=== PATIENT | male | born 1940 | race Caucasian/White ===

== ENCOUNTER 2017-09-10 18:34 | Emergency (ER) | payer MEDICARE ==
[~2017-09-10] VITALS: Ht 162.6 cm; Wt 75.3 kg
--- NOTE | 2017-09-10 19:07 | NUR ---
JOVANNA FROM HOME DT SP GLF. PATIENT IS COMPLAINING OF LOWER BACK PAIN, DENIES KO, DENIES HITTING HEAD. PATIENT REMAINS AWAKE AND ALERT, PT IN NO DISTRESS. RESPIRATION EVEN AND UNLABORED,. SKIN IS WARM TO TOUCH AND NON DIAPHORETIC, PT IS AFEBRILE. WILL CONT TO MONITOR
[2017-09-10] MEDS ORDERED: HYDROMORPHONE 1 MG/1 ML DISP.SYRIN ONE ×2 (19:10→20:55)
[2017-09-10] MEDS ORDERED: HYDROMORPHONE INJ 2 MG/ML DISP.SYRIN IV ONE (19:30)
--- NOTE | 2017-09-10 20:53 | NUR ---
Dr Cotter at bedside talking to patient and to patient's brother on the phone.
[2017-09-10] MEDS ORDERED: KETOROLAC TROMETHAMINE INJ 30 MG/ML VIAL ONE (20:55)
[2017-09-10] MEDS ORDERED: HYDROMORPHONE 1 MG/1 ML DISP.SYRIN IV ONE (21:00)
[2017-09-10] MEDS ORDERED: KETOROLAC TROMETHAMINE INJ 30 MG/ML VIAL IV ONE (21:00)
--- NOTE | 2017-09-10 22:46 | NUR ---
Patient does not wish to proceed with medical care recommended by Dr. Cotter. Patient given information related to possible complications, up to and including , which could occur as a result of leaving the hospital at this time. Patient verbalizes understanding of risks involved due to leaving against medical advice. Patient has signed AMA form. Patient discharged to home in stable condition. Written and verbal after care instructions given. Patient verbalizes understanding of instruction. IV removed. Catheter intact and site benign. Pressure and 4x4 applied to site. No bleeding noted. Patient able to walk with steady gait and assistance with a cane. Instructed not to drive. vss. nad noted on dc. No further complaints.
[2017-09-10 22:47] VITALS: BP 145/74
== END 2017-09-10 22:47 | disposition home or self-care (01) ==
LOC: ER 18:37
DX: S39.012A Strain of muscle, fascia and tendon of lower back, initial encounter (principal); M48.061 Spinal stenosis, lumbar region without neurogenic claudication; Z98.890 Other specified postprocedural states; W01.0XXA Fall on same level from slipping, tripping and stumbling without subsequent striking against object, initial encounter; Y93.89 Activity, other specified; Y92.89 Other specified places as the place of occurrence of the external cause; Y99.8 Other external cause status
CPT/HCPCS: 72128; 72131; 96374; 96375; 96376; 99285; A4606; J1170 ×2; J1885; Z7610

== ENCOUNTER 2017-09-12 09:02 | Inpatient (IN) | payer MEDICARE ==
[~2017-09-12] VITALS: Ht 162.6 cm; Wt 75.3 kg
--- NOTE | 2017-09-12 09:10 | NUR ---
BBRA 89 FROM HOME C/O GLF WITH LEFT SHOULDER PAIN. DENIES HEAD TRAUMA. DENIES LOC. C/O CHEST "ACHE". SEEN BY MD FOR EVAL. SAFETY AND COMFORT MEASURES PROVIDED. WILL MONITOR,.
--- NOTE | 2017-09-12 09:20 | NUR ---
IV ACCESS STARTED. UNABLE TO DRAW BLOOD. MEDICATED ORDERED.
[2017-09-12] MEDS ORDERED: IV NS 0.9% 500 ML BAG IV ONE (09:30)
--- NOTE | 2017-09-12 09:45 | NUR ---
PT TAKEN TO CT.
[2017-09-12 09:51] LABS: CALCIUM, SERUM 8.8 mg/dL (8.5-10.1); CARBON DIOXIDE 23 mmol/L (21-32); CHLORIDE 101 mmol/L (98-107); CREATININE 1.2 mg/dL (0.6-1.3); GLUCOSE 154 mg/dL (74-106); POTASSIUM 3.7 mmol/L (3.5-5.1); SODIUM SERUM 136 mmol/L (136-145); UREA NITROGEN, BLOOD 20 mg/dL (7-18)
[2017-09-12 09:55] LABS: INR 1.98 (0.85-1.15)
[2017-09-12 09:56] LABS: ALANINE AMINOTRANSFERASE 27 U/L (12-78); ALBUMIN 3.5 g/dL (3.4-5.0); ALKALINE PHOSPHATASE 73 U/L (46-116); ASPARTATE AMINOTRANSFERASE 26 U/L (15-37); BILIRUBIN,DIRECT 0.1 mg/dL (0.0-0.2); BILIRUBIN,TOTAL 0.4 mg/dL (0.2-1.0); TOTAL PROTEIN, SERUM 7.6 g/dL (6.4-8.2)
[2017-09-12 09:59] LABS: TROPONIN I < 0.017 ng/mL (0.00-0.056)
[2017-09-12] MEDS ORDERED: ALPR1TAB7 PO (10:07)
[2017-09-12] MEDS ORDERED: OXYC15TA2 PO (10:07)
[2017-09-12 10:38] LABS: BASOPHILS % (AUTO) 0.3 % (0.0-2.0); EOSINOPHILS # (AUTO) 0.2 /CMM (0.0-0.7); EOSINOPHILS % (AUTO) 1.9 % (0.0-6.0); HEMATOCRIT 36 % (39-51); HEMOGLOBIN 12.1 g/dL (13.5-17.5); LYMPHOCYTES # (AUTO) 0.8 /CMM (0.8-4.8); MEAN CORPUSCULAR HEMOGLOBIN 30 PG (26.0-33.0); MEAN CORPUSCULAR HGB CONC 34 g/dl (31.0-36.0); MEAN CORPUSCULAR VOLUME 89 fL (80-96); MONOCYTES # (AUTO) 0.5 /CMM (0.1-1.30); MONOCYTES % (AUTO) 5.1 % (2.0-12.0); NEUTROPHILS # (AUTO) 7.4 /CMM (1.8-8.9); NEUTROPHILS % (AUTO) 83.7 % (43.0-81.0); PLATELET COUNT (AUTO) 324 /CMM (150-450); RDW COEFFICIENT OF VARIATION 15.3 (11.5-15.0); RED BLOOD CELL COUNT(AUTO) 4.07 MIL/uL (4.5-6.0); WHITE BLOOD COUNT (AUTO) 8.9 K/uL (4.3-11.0)
[2017-09-12] MEDS ORDERED: IV NS 0.9% 1,000 ML IV PRN (10:38)
--- NOTE | 2017-09-12 10:47 | NUR ---
REPORT GIVEN TO MAURICIO JEREZ FOR TELE 321.
[2017-09-12] MEDS ORDERED: MAGNESIUM HYDROXIDE 30 ML UDC PO PRN (11:00)
[2017-09-12] MEDS ORDERED: ONDANSETRON HCL/PF 4 MG/2 ML VIAL IVP PRN (11:00)
[2017-09-12] MEDS ORDERED: ACETAMINOPHEN 325 MG TABLET PO PRN (11:00)
[2017-09-12] MEDS ORDERED: HYDROCODONE/APAP 5/325MG 1 EACH TABLET PO PRN (11:00)
[2017-09-12] MEDS ORDERED: MAG HYDROX/AL HYDROX/SIMETH 30 ML UDC PO PRN (11:00)
--- NOTE | 2017-09-12 11:03 | NUR ---
MS R&D LAB TECHNICIAN NOTES RECEIVED PT FROM ER NURSE IN STABLE CONDITION. PT IS A/O X3. NO SOB OR SIGNS OF DISTRESS NOTED. BREATHING EVEN AND UNLABORED. PT ADMITTED BY ALICIA THE LACQUER SHADER WITH A DIAGNOSIS OF SCUTE WEAKNESS SECONDARY TO INTRACTABLE BACK PAIN. PT DENIES ANY PAIN AT THIS TIME. HE WAS ORIENTED TO ROOM. BELONGINGS REVIEWED A ND VERIFIED WITH PT. PER PT, HE BELIEVES HE LEFT HAS "ALLIGATOR BOOTS" WITH THE FIRE DEPARTMENT STAFF AND/OR AT HOME. ER NURSE TO CALL WITH FIRE DEPARTMENT INFORMATION SO THAT THE PT MAY FOLLOW UP. VITALS STABLE AT THIS TIME. IV NOTED ON RIGHT HAND 20G TO BE PATENT AND INTACT. NO REDNESS OR SIGNS OF INFILTRATION NOTED. WILL BEGIN NS INFUSION. BED IN LOW LOCKED POTION, SIDE RAILS UP X2, CALL LIGHT WITHIN REACH. WILL CONTINUE TO MONITOR
[2017-09-12] MEDS: HYDROCODONE/APAP 10/325MG 1 EA TABLET PO PRN ×3 (11:30→21:06)
--- NOTE | 2017-09-12 12:46 | NUR ---
MS RN NOTES PT COMPLAINS OF LEFT SHOULDER PAIN S/P FALL AT HOME. ALICIA NOTIFIED AND GAVE PHONE ORDER FOR XR OF SHOULDER COMPLETE.
--- NOTE | 2017-09-12 14:55 | NUR ---
MS RN NOTES PT STATES 'I AM HAVING A PANIC ATTACK AND NEED MY MEDS". ALICIA NOTIFIED AND GAVE VERBAL ORDER FOR ATIVAN 1MG PO Q6HR. WILL INPUT ORDER AND ADMINISTER DOSE
[2017-09-12] MEDS: LORAZEPAM 1 MG TABLET PO PRN (15:07)
[2017-09-12 15:29] LABS: APPEARANCE,URINE CLEAR (CLEAR); BILIRUBIN,URINE NEGATIVE (NEGATIVE); BLOOD, URINE 2+ Ery/uL (NEGATIVE); COLOR,URINE YELLOW (YELLOW); KETONES,URINE TRACE (NEGATIVE); LEUKOCYTE ESTERASE ,URINE NEGATIVE (NEGATIVE); NITRITE, URINE NEGATIVE (NEGATIVE); PROTEIN,URINE TRACE mg/dl (NEGATIVE); UGLUCOSE NEGATIVE (NEGATIVE); UROBILINOGEN,URINE 0.2 EU/dL (0.2)
[2017-09-12 15:38] LABS: BACTERIA,URINE Rare /HPF (None Seen); SQUAMOUS EPITHELIAL CELL,UR Few /HPF (None Seen); WBC,URINE 0-2 /HPF (0-3)
[2017-09-12 16:00] VITALS: BP 130/73
--- NOTE | 2017-09-12 18:47 | NUR ---
MS RN CLOSING NOTES PT REMAINS STABLE SINCE ADMISSION. ALL NEEDS MET DURING SHIFT AND ORDERS CARRIED OUT ACCORDINGLY. ALL DUE MEDS GIVEN. SAFE AND FALL PRECAUTIONS REMAIN IN PLACE. WILL ENDORSE TO NIGHTSHIFT NURSE FOR JANET
--- NOTE | 2017-09-12 19:30 | NUR ---
MS RN NOTE RECEIVED PATIENT AWAKE ALERT AND ORIENTED IN BED. NO RESPIRATORY DISTRESS OR SOB NOTED. PATIENT DENIES ANY PAIN A THIS TIME. SAFETY PRECAUTIONS IN PLACE AT ALL TIMES. IV SITE INTACT, WITH FLUIDS RUNNING ORDERED. BED LOCKED AND IN LOWEST POSITION. CALL LIGHT WITHIN REACH. WILL CONTINUE TO MONITOR.
[2017-09-12 20:00] VITALS: BP 115/60
[2017-09-12] MEDS ORDERED: ALPRAZOLAM 1 MG TABLET PO SCH (22:00)
[2017-09-13 00:42] VITALS: BP 120/65
[2017-09-13 04:00] VITALS: BP 132/69
[2017-09-13] MEDS: HYDROCODONE/APAP 10/325MG 1 EA TABLET PO PRN ×2 (05:43→11:35)
--- NOTE | 2017-09-13 06:27 | NUR ---
MS RN NOTE PATIENT STABLE. SLEEPING AT THIS TIME. NORMAL AND EVEN RESPIRATIONS. ALL NEEDS MET AND ATTENDED TO. IV RUNNING ORDERED. WILL ENDORSE TO DAY SHIFT FOR JANET.
--- NOTE | 2017-09-13 07:27 | NUR ---
MS RN OPENING NOTES RECEIVED PT IN BED. AWAKE, A/O X3. NO SOB OR SIGNS OF DISTRESS NOTED. BREATHING EVEN AND UNLABORED. PT DENIES ANY PAIN AT THIS TIME. IV NOTED ON RIGHT HAND 20G, PATENT AND INTACT. NO REDNESS OR SIGNS OF INFILTRATION NOTED. BED IN LOW LOCKED POTION, SIDE RAILS UP X2, CALL LIGHT WITHIN REACH. WILL CONTINUE TO MONITOR
[2017-09-13] MEDS ORDERED: PANTOPRAZOLE 40 MG TABLET.DR PO SCH (07:30)
[2017-09-13 07:42] LABS: BASOPHILS % (AUTO) 0.4 % (0.0-2.0); EOSINOPHILS # (AUTO) 0.4 /CMM (0.0-0.7); EOSINOPHILS % (AUTO) 6.6 % (0.0-6.0); HEMATOCRIT 33 % (39-51); HEMOGLOBIN 11.2 g/dL (13.5-17.5); LYMPHOCYTES # (AUTO) 1.1 /CMM (0.8-4.8); LYMPHOCYTES % (AUTO) 19.6 % (20.0-44.0); MEAN CORPUSCULAR HEMOGLOBIN 31 PG (26.0-33.0); MEAN CORPUSCULAR HGB CONC 34 g/dl (31.0-36.0); MEAN CORPUSCULAR VOLUME 91 fL (80-96); MONOCYTES # (AUTO) 0.3 /CMM (0.1-1.30); MONOCYTES % (AUTO) 5.8 % (2.0-12.0); NEUTROPHILS # (AUTO) 3.7 /CMM (1.8-8.9); NEUTROPHILS % (AUTO) 67.6 % (43.0-81.0); PLATELET COUNT (AUTO) 249 /CMM (150-450); RDW COEFFICIENT OF VARIATION 16.5 (11.5-15.0); RED BLOOD CELL COUNT(AUTO) 3.58 MIL/uL (4.5-6.0); WHITE BLOOD COUNT (AUTO) 5.5 K/uL (4.3-11.0)
[2017-09-13 08:00] VITALS: BP 121/69
[2017-09-13] MEDS: LORAZEPAM 1 MG TABLET PO PRN (08:16)
[2017-09-13 08:27] LABS: CALCIUM, SERUM 8.6 mg/dL (8.5-10.1); CARBON DIOXIDE 25 mmol/L (21-32); CHLORIDE 103 mmol/L (98-107); CREATININE 0.9 mg/dL (0.6-1.3); GLUCOSE 92 mg/dL (74-106); PHOSPHORUS 2.2 mg/dL (2.5-4.9); POTASSIUM 3.6 mmol/L (3.5-5.1); SODIUM SERUM 138 mmol/L (136-145); UREA NITROGEN, BLOOD 15 mg/dL (7-18)
[2017-09-13 08:33] LABS: CHOLESTEROL 150 mg/dL (<200); HDL CHOLESTEROL 57 mg/dL (40-60); LDL 94 mg/dL (0-99); THYROID STIMULATING HORMONE 1.373 uIU/mL (0.358-3.74); TRIGLYCERIDES 33 mg/dL (30-150)
[2017-09-13 08:57] LABS: IRON, SERUM 75 ug/dl (50-175); TOTAL IRON BINDING CAPACITY 370 ug/dl (250-450)
[2017-09-13 09:11] LABS: CHOLESTEROL 156 mg/dL (<200); FERRITIN 85 ng/mL (8-388); HDL CHOLESTEROL 61 mg/dL (40-60); LDL 97 mg/dL (0-99); TRIGLYCERIDES 30 mg/dL (30-150)
[2017-09-13] MEDS ORDERED: K PHOS NEUTRAL 250 MG TABLET PO ONE (11:30)
--- NOTE | 2017-09-13 13:40 | NUR ---
MS PAINT SPRAYER SANDBLASTER NOTES PATIENT LEFT IN STABLE CONDITION, VITAL SIGNS WNL, NO DISTRESS AT THE TIME OF DISCHARGE. SKIN IS INTACT, DENIES PAIN AND SOB. DISCHARGE INSTRUCTIONS GIVEN TO THE PATIENT, DISCHARGE PAPERS SIGNED. WENT OVER BELONGINGS LIST WITH THE PATIENT, PATIENT IS IN POSSESSION OF ALL THE BELONGINGS. HEALTH TEACHING AND EDUCATION PERFORMED, REPORTABLE SIGNS AND SYMPTOMS DISCUSSED, MEDICATION LIST REVIEWED, PATIENT VERBALIZED UNDERSTANDING OF ALL THE TEACHINGS. REFUSED FLU AND PNEUMONIA VACCINATIONS. PATIENT WAS ADVISED TO FOLLOW UP WITH PRIMARY CARE PHYSICIAN WITHIN 1-2 WEEKS. HEPLOCK REMOVED, WRIST BAND REMOVED. PATIENT WAS ESCORTED OUT OF THE HOSPITAL ON A WHEELCHAIR.
== END 2017-09-13 13:52 | disposition home health service (06) | DRG 56 ==
LOC: ER 09:03 → TELE 10:22 → MED 09-13 06:05
PROVIDERS: ADMIT Nurse Practitioner Acute Care; ATTEND Nurse Practitioner Acute Care
DX: G91.2 (Idiopathic) normal pressure hydrocephalus (principal); N17.0 Acute kidney failure with tubular necrosis; F13.20 Sedative, hypnotic or anxiolytic dependence, uncomplicated; F11.20 Opioid dependence, uncomplicated; S43.402A Unspecified sprain of left shoulder joint, initial encounter; D63.8 Anemia in other chronic diseases classified elsewhere; W18.30XA Fall on same level, unspecified, initial encounter; G89.29 Other chronic pain; M48.00 Spinal stenosis, site unspecified; Z79.899 Other long term (current) drug therapy; Y92.002 Bathroom of unspecified non-institutional (private) residence as the place of occurrence of the external cause; Y93.01 Activity, walking, marching and hiking; I10 Essential (primary) hypertension; R53.1 Weakness; Z98.890 Other specified postprocedural states
CPT/HCPCS: 36415; 70450-TC; 71045-TC; 73030-TC; 80048-TC; 80061-TC; 80076-TC; 81000-TC; 82728-TC; 83540-TC; 83735-TC; 84100-TC; 84443-TC; 84484-TC; 85025-TC; 85730-TC; 86850-TC; 87081-TC; A4606; J7030; J7040; Z7610

== ENCOUNTER → 2017-09-25 | Outpatient (CLI) | payer MEDICARE ==
[~2017-09-25] MED LIST: ALPR1TAB7 PO; OXYC15TA2 PO
[2017-09-25 13:26] VITALS: BP 152/89
[2017-09-25 13:27] VITALS: BP 152/89
== END | disposition home or self-care (01) ==
LOC: MSC 13:20
PROVIDERS: ATTEND Internal Medicine
DX: S43.402A Unspecified sprain of left shoulder joint, initial encounter (principal); S40.012A Contusion of left shoulder, initial encounter; M47.896 Other spondylosis, lumbar region; M94.0 Chondrocostal junction syndrome [Tietze]; R53.1 Weakness; F19.20 Other psychoactive substance dependence, uncomplicated; N17.0 Acute kidney failure with tubular necrosis; D64.9 Anemia, unspecified; G47.00 Insomnia, unspecified; I10 Essential (primary) hypertension; G89.29 Other chronic pain; X58.XXXA Exposure to other specified factors, initial encounter; Y93.89 Activity, other specified; Y92.89 Other specified places as the place of occurrence of the external cause; Y99.8 Other external cause status

== ENCOUNTER 2017-09-29 16:25 | Emergency (ER) | payer MEDICARE ==
[~2017-09-29] VITALS: Ht 170.2 cm; Wt 74.8 kg
[2017-09-29 16:34] VITALS: BP 141/85
== END 2017-09-29 17:10 | disposition home or self-care (01) ==
LOC: ER 16:26
DX: Z76.0 Encounter for issue of repeat prescription (principal); G89.29 Other chronic pain; M54.9 Dorsalgia, unspecified; K58.9 Irritable bowel syndrome, unspecified; M48.00 Spinal stenosis, site unspecified
CPT/HCPCS: A4606; Z7610

== ENCOUNTER 2020-05-27 16:03 | Inpatient (IN) | payer MEDICARE ==
[~2020-05-27] VITALS: Ht 167.6 cm; Wt 70.3 kg
--- NOTE | 2020-05-27 16:06 | NUR ---
aksrv379 and pet team, c/o left leg pain s/p GLF x 6 the last 4 days, on room air, breathing evenly and unlabored. connected to the monitor and pulse ox. kept comfortable, will continue to monitor accordingly.
[2020-05-27] MEDS ORDERED: OMEP20TA5 PO (16:43)
--- NOTE | 2020-05-27 16:56 | NUR ---
MOVE SHEET SUBMITTED AND CALLED FOR GPS BED.
[2020-05-27] MEDS ORDERED: IV NS 0.9% 1,000 ML BAG IV ONE (17:00)
[2020-05-27 17:23] LABS: BASOPHILS % (AUTO) 0.4 % (0.0-2.0); EOSINOPHILS % (AUTO) 6.4 % (0.0-6.0); HEMATOCRIT 43 % (39-51); HEMOGLOBIN 14.3 g/dL (13.5-17.5); LYMPHOCYTES # (AUTO) 1.6 /CMM (0.8-4.8); LYMPHOCYTES % (AUTO) 43.5 % (20.0-44.0); MEAN CORPUSCULAR HGB CONC 33 g/dl (31.0-36.0); MEAN CORPUSCULAR VOLUME 96 fL (80-96); MONOCYTES # (AUTO) 0.4 /CMM (0.1-1.30); MONOCYTES % (AUTO) 12.2 % (2.0-12.0); NEUTROPHILS # (AUTO) 1.4 /CMM (1.8-8.9); NEUTROPHILS % (AUTO) 37.5 % (43.0-81.0); PLATELET COUNT (AUTO) 273 /CMM (150-450); RED BLOOD CELL COUNT(AUTO) 4.52 MIL/uL (4.5-6.0); WHITE BLOOD COUNT (AUTO) 3.6 K/uL (4.3-11.0)
--- NOTE | 2020-05-27 17:24 | NUR ---
covid swab collected and sent to lab
[2020-05-27 17:34] LABS: CALCIUM, SERUM 9.5 mg/dL (8.5-10.1); CARBON DIOXIDE 25 mmol/L (21-32); CHLORIDE 101 mmol/L (98-107); CREATININE 1.1 mg/dL (0.6-1.3); GLUCOSE 93 mg/dL (74-106); POTASSIUM 3.2 mmol/L (3.5-5.1); SODIUM SERUM 138 mmol/L (136-145); UREA NITROGEN, BLOOD 18 mg/dL (7-18)
[2020-05-27 17:39] LABS: ALANINE AMINOTRANSFERASE 33 U/L (12-78); ALBUMIN 3.9 g/dL (3.4-5.0); ALKALINE PHOSPHATASE 82 U/L (46-116); ASPARTATE AMINOTRANSFERASE 22 U/L (15-37); BILIRUBIN,DIRECT 0.3 mg/dL (0.0-0.2); BILIRUBIN,TOTAL 0.7 mg/dL (0.2-1.0); TOTAL PROTEIN, SERUM 8.2 g/dL (6.4-8.2)
--- NOTE | 2020-05-27 18:19 | NUR ---
NEG FOR COVID
--- NOTE | 2020-05-27 19:07 | NUR ---
going to 211.1
--- NOTE | 2020-05-27 19:32 | NUR ---
report given to zuleika villagomez in gps
[2020-05-27 20:04] LABS: APPEARANCE,URINE CLEAR (CLEAR); BILIRUBIN,URINE SMALL (NEGATIVE); BLOOD, URINE NEGATIVE Ery/uL (NEGATIVE); COLOR,URINE YELLOW (YELLOW); KETONES,URINE 40 (NEGATIVE); LEUKOCYTE ESTERASE ,URINE NEGATIVE (NEGATIVE); NITRITE, URINE NEGATIVE (NEGATIVE); PH,URINE 5.5 (5.0-8.0); PROTEIN,URINE TRACE mg/dl (NEGATIVE); UGLUCOSE NEGATIVE (NEGATIVE)
[2020-05-27 20:26] LABS: BACTERIA,URINE RARE /HPF (None Seen); MUCUS,URINE Few /LPF (None Seen); RBC,URINE 0-2 /HPF (0-2); SQUAMOUS EPITHELIAL CELL,UR 0-2 /HPF (None Seen); WBC,URINE 0-2 /HPF (0-3)
[2020-05-27] MEDS ORDERED: clonazePAM 0.5 MG TABLET PO SCH (20:30)
[2020-05-27] MEDS ORDERED: BLOOD SUGAR DIAGNOSTIC 1 EACH STRIP IN ONE (20:30)
[2020-05-27] MEDS ORDERED: TEMAZEPAM 7.5 MG CAPSULE PO PRN (20:30)
[2020-05-27] MEDS ORDERED: MAGNESIUM HYDROXIDE 30 ML UDC PO PRN (20:30)
[2020-05-27] MEDS ORDERED: MAG HYDROX/AL HYDROX/SIMETH 30 ML UDC PO PRN (20:30)
[2020-05-27] MEDS ORDERED: ACETAMINOPHEN 325 MG TABLET PO PRN (20:30)
--- NOTE | 2020-05-27 20:30 | NUR ---
GPS ADMISSION NOTE: RECEIVED PT FROM ER ORIGINALLY FROM HOME. PT. ARRIVED AT 2015 VIA GURNEY WITH ER STAFF. PT ADMITTED ON A 5150 HOLD FOR GD. PER HOLD PT KEPT FALLING, NOT SHOWERING, NO FOOD AND DOES NOT HAVE A PHONE TO COMMUNICATE. THE HOLD WAS REVIEWED AND DOCUMENTAION OF HOLD APPEARS TO REFLECT PATIENT. UPON FACE TO FACE ASSESSMENT PT. IS NOTED TO BEING A/O X3, DISHEVELED, DISORGANIZED, COOPERATIVE. PT IS CURRENTLY SLEEPING IN BED WITH NO S/S OF DISTRESS, PAIN, SOB. PT. DENIES SI/HI AT THIS TIME. PT IS UNABLE TO SIGN PAPERWORK DUE TO HIS CONDITION. PT WAS ADVISED OF HOLD AND GIVEN PATIENT RIGHTS HANDBOOK. UNDER PSY[facility]ATRIC CARE OF [facility] AND MEDICAL CARE OF [facility]. BELONGINGS WERE INVENTORIED AND CHECKED FOR CONTRABAND. ALL CONTRABAND REMOVED AND STORED IN HALLWAY LOCKER. SKIN ASSESSMENT COMPLETED.EDUCATED ON PATIENT CALL LIGHT. SIDE RAILS UP 2 , LOCKED AND LOW POSITION. WILL CONTINUE TO MONITOR.
--- NOTE | 2020-05-27 23:00 | NUR ---
GPS RN NOTE: CALLED DR. YODER REGARDING POTASSIUM LEVEL OF 3.2. DR YODER STATES THAT DR. DEWITT ALREADY SEEN THE PT AT ER. NO NEW ORDERS. WILL CONTINUE TO MONITOR.
[2020-05-27 23:06] VITALS: BP 158/90
[2020-05-28 07:01] LABS: THYROID STIMULATING HORMONE 2.198 uIU/mL (0.358-3.74)
[2020-05-28 08:00] VITALS: BP 133/59
[2020-05-28] MEDS: PANTOPRAZOLE 40 MG TABLET.DR PO SCH (09:12)
[2020-05-28 09:23] LABS: CALCIUM, SERUM 9.3 mg/dL (8.5-10.1); POTASSIUM 3.2 mmol/L (3.5-5.1)
[2020-05-28] MEDS ORDERED: POTASSIUM CHLORIDE 20 MEQ TAB.PRT.SR PO ONE (11:00)
[2020-05-28 16:00] VITALS: BP 134/77
--- NOTE | 2020-05-28 19:20 | NUR ---
GPS RN NOTE: OPENING NOTE RECEIVED PATIENT RESTING IN HIS BED, A & O X 3, HAS H/O DEMENTIA, COOPERATIVE, PLEASANT, PER AM RN REPORT & PER PATIENT HE USES WALKER TO WALK DUE TO LEFT LEG WEAKNESS, REMINDED THE PATIENT TO ALWAYS USE HIS WALKER WHEN AMBULATING FOR SAFETY & TO PREVENT FALL, PT VERBALIZED UNDERSTANDING AT THIS TIME. BED ALARM ON. BED IN LOW LOCKED POSITION. WILL CONTINUE TO ASSIST WITH ADL'S & WILL CONTINUE TO MONITOR FOR SAFETY, MOOD & BEHAVIOR.
[2020-05-28 19:50] VITALS: BP 141/86
[2020-05-28 20:00] VITALS: BP 141/86
[2020-05-28] MEDS: QUETIAPINE FUMARATE 25 MG TABLET PO SCH (22:00)
--- NOTE | 2020-05-28 22:03 | NUR ---
GPS RN NOTE: REFUSED SEROQUEL PATIENT REFUSED SEROQUEL, STATED," MY BROTHER WHO IS A DOCTOR & MYSELF HAVE DISCUSSED ALREADY THAT I DO NOT NEED PSYCHOTIC MEDICINE, I MIGHT TAKE SLEEPING MEDICINE IF NEEDED AT NIGHT THEN I WILL LET YOU KNOW LATER." SEROQUEL WAS NOT GIVEN TO THE PATIENT. WILL CONTINUE TO MONITOR FOR ANY CHANGES.
--- NOTE | 2020-05-28 23:41 | NUR ---
GPS RN NOTE: PAIN PATIENT VERBALIZED C/O LEFT LEG PAIN 10/18 & REQUESTED TO GET TYLENOL. PRN TYLENOL 650 MG PO GIVEN. WILL CONTINUE TO MONITOR.
--- NOTE | 2020-05-29 02:10 | NUR ---
GPS RN NOTE PATIENT VERBALIZED THAT HE HAS LEFT KNEE & LEG PAIN, TYLENOL WAS INEFFECTIVE. PATIENT REQUESTED TO GET MD ELENITA NOTIFIED & RECEIVED NEW ORDER OF NORCO 10/325 MG 1 TAB Q6H PRN. NOTED & CARRIED OUT. WILL ADMINISTER MEDICINE ORDERED.
[2020-05-29] MEDS ORDERED: HYDROCODONE/APAP 10/325MG TABLET PO PRN (02:30)
--- NOTE | 2020-05-29 02:35 | NUR ---
GPS RN NOTE: PAIN PATIENT C/O LEFT KNEE & LEG PAIN 02/17 & REQUESTED TO GET NORCO. PRN NORCO 10/325 MG 1 TAB PO GIVEN, WILL CONTINUE TO MONITOR.
--- NOTE | 2020-05-29 06:36 | NUR ---
GPS RN NOTE PATIENT WOKE UP TO USE THE RESTROOM, ASKED THE PATIENT IF NORCO WAS EFFECTIVE FOR LEFT KNEE/LEG PAIN. PATIENT SMILED & STATED," OH YES, PAIN IS GONE, I AM GLAD THAT I TOOK NORCO." WILL CONTINUE TO MONITOR.
[2020-05-29] MEDS: PANTOPRAZOLE 40 MG TABLET.DR PO SCH (07:30)
[2020-05-29 08:00] VITALS: BP 157/83
--- NOTE | 2020-05-29 11:08 | NUR ---
FAMILY CONTACT: SW received a call from pts brother Dr. Trevor Taylor ([phone]) who provided SW with collateral information. Per brother, pt cannot return home as he states pts current living conditions are "horrible" brother states that pt had food all over his apartment, mold, and that he was unable to walk through the door due to it being filled with papers. Brother states that pt does not have history of Dementia and states that pt has been taking Xanax which may have caused pts hallucinations and paranoia. 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 Brother wishes for pt to be discharged to a SNF and then states he will move pt back to [place] where brother currently lives.
--- NOTE | 2020-05-29 13:55 | NUR ---
INITIAL DISCHARGE PLAN: Per pts brother Trevor ([phone]) pt is unable to return home due to pts current unsafe living conditions and pt being unable to care for himself. Brother requests pt be discharged to a SNF. SW will help form a safe and proper discharge in collaboration with .
[2020-05-29 16:00] VITALS: BP 120/90
[2020-05-29 19:51] VITALS: BP 156/90
[2020-05-29] MEDS: QUETIAPINE FUMARATE 25 MG TABLET PO SCH (21:18)
--- NOTE | 2020-05-29 21:18 | NUR ---
GPS RN NOTES: REFUSED SEROQUEL PT REFUSED SEROQUEL DUE. PT STATED, "I WOULD LIKE TO REFUSE. I WOULD LIKE TO KEEP MY OPTIONS OPEN. I'VE BEEN THERE." EXPLAIN RISKS AND BENEFITS. PT STILL REFUSED X3. CONTINUE THE PLAN OF CARE
--- NOTE | 2020-05-30 00:51 | NUR ---
GPS RN NOTES: UPON DOING ROUNDS, PT AWAKE TALKING TO SELF. ASKED PT TO EXPRESS THOUGHTS AND FEELINGS TO STAFF. PT STATED, "IM JUST AWAKE YOU CAN SEE." OFFERED RESTORIL PRN ORDERED. PT REFUSED AND STATED HE "DOESN'T LIKE PILLS" EXPLAIN RISKS AND BENEFITS. PT STILL REFUSED X3. CONTINUE TO MONITOR.
[2020-05-30 08:00] VITALS: BP 150/100
[2020-05-30] MEDS: PANTOPRAZOLE 40 MG TABLET.DR PO SCH (08:19)
--- NOTE | 2020-05-30 09:18 | NUR ---
FAMILY CONTACT: SW received a call from pts brother Dr. Trevor Taylor ([phone]) stating that he is here in hospital wanting to see pt. SW stated that he needed to request permission from the CNO as currently the hospital is not allowing visitors due COVID-19 restrictions. SW stated that she would contact social server service assistant to inform her and call him back.
--- NOTE | 2020-05-30 09:23 | NUR ---
FAMILY CONTACT: SW contacted pts brother Dr. Trevor Taylor ([phone]) to inform him CNO has granted him permission for 45min to visit pt.
[2020-05-30 16:00] VITALS: BP 137/66
[2020-05-30 19:43] VITALS: BP 171/75
[2020-05-30 20:16] VITALS: BP 154/85
[2020-05-30] MEDS: QUETIAPINE FUMARATE 25 MG TABLET PO SCH (21:09)
--- NOTE | 2020-05-31 00:05 | NUR ---
GPS RN NOTES: UPON DOING ROUNDS PT AWAKE GETTING OUT OF HIS BED. PT STATED, "IM GOING TO READ A BOOK. I CANT SLEEP." OVER RESTORIL PRN ORDERED. PT REFUSED. EXPLAIN RISKS AND BENEFITS, PT STILL REFUSED X3. CONTINUE TO MONITOR.
--- NOTE | 2020-05-31 01:11 | NUR ---
GPS RN NOTES: UPON DOING ROUNDS, PT AWAKE TALKING TO SELF AND ANGRY. ASKED PT TO EXPRESS THOUGHTS AND FEELINGS TO STAFF. PT STATED, "ITS YOUR FAULT, THE FILM HAS WORMS." OFFERED RESTORIL PRN ORDERED. PT REFUSED AND STATED HE "DOESN'T LIKE PILLS" OFFERED KLONOPIN PRN ORDERED. PT SAID NO. INCREASED AGITATION. EXPLAIN RISKS AND BENEFITS. PT STILL REFUSED X3. CONTINUE TO MONITOR. Addendum: 06/01/20 at 0328 by AVIS MCELROY RN 06/01/10 @0111
[2020-05-31 08:00] VITALS: BP 141/79
[2020-05-31] MEDS: PANTOPRAZOLE 40 MG TABLET.DR PO SCH (08:00)
--- NOTE | 2020-05-31 10:10 | NUR ---
SNF REFERRAL: HAILEE faxed SNF referral to [facility] ([facility]) [address] [facility] [address] P: [phone] for review.
--- NOTE | 2020-05-31 13:22 | NUR ---
RN-CO: PAGED DR PRIEST RELAYING THE MESSAGE OF DR CLEMENTE REGARDING PLAN OF CARE.
--- NOTE | 2020-05-31 14:21 | NUR ---
GROUP THERAPY: SW encouraged pt to attend group on this day to discuss his paranoid thoughts and self-care. Pt refused and he couldn't see because he didn't have his glasses and wanted to stay in his room where he felt safe. SW provided reassurance and informed him that his glasses were at bedside and then pt stated that he just wanted to rest. Pt appears suspicious of his surrounding and is isolative and withdrawn.
--- NOTE | 2020-05-31 14:43 | NUR ---
SNF REFERRAL: SW received a call from Sadia reporting coordinator at [facility] ([facility]) [address] [facility] [address] P: [phone] stating pt has been accepted to the facility.
--- NOTE | 2020-05-31 15:00 | NUR ---
FAMILY CONTACT: SW received a call from pts brother Dr. Trevor Taylor ([phone]) requesting updated information. SW informed him that pts progress remains the same as yesterday. SW stated that it'll take some time for new psychotropic medication to take effect. SW informed brother that pt has been accepted to [facility]. Brother also requested information on getting a public works inspector to have pt sign DPOA paperwork and SW explained that mental health law prohibits pt signing legal documentation as pt is gravely disabled and diagnosed with Dementia. Brother understood and requested a call from .
[2020-05-31 16:00] VITALS: BP 149/78
--- NOTE | 2020-05-31 18:16 | NUR ---
RN NOTE :PATIENT ANXIOUS MEDICATED WITH KLONOPIN 0.5MG PO X1 WILL CONTINUE TO MONITOR .
[2020-05-31 20:00] VITALS: BP 147/89
--- NOTE | 2020-05-31 20:33 | NUR ---
GPS RN NOTES: CALLED RADIOLOGY DEPARTMENT IN REGARDS TO PTS MRI W/O CONTRAST THAT IS ORDERED. PER RADIOLOGY, MRI WOULD NEED TO DONE TOMORROW MORNING AND TO CALL AT 0600 TO CONFIRM WHEN TO BRING PT TO MRI. CHARGE NURSE AWARE AND WILL CONTINUE TO FOLLOW UP.
[2020-05-31] MEDS: QUETIAPINE FUMARATE 25 MG TABLET PO SCH (21:10)
[2020-06-01] MEDS: clonazePAM 0.5 MG TABLET PO PRN ×2 (05:13→10:21)
--- NOTE | 2020-06-01 05:15 | NUR ---
GPS RN NOTE: ANXIOUS PATIENT ANXIOUS AND TALKING LOUDLY. MEDICATED WITH KLONOPIN 0.5MG PO PRN ORDERED. PT AGREED AND TOLERATED MEDICATION WELL. WILL CONTINUE TO MONITOR .
--- NOTE | 2020-06-01 06:15 | NUR ---
GPS RN NOTES: SPOKE TO HEATHER EX 4061 REGARDING PTS MRI OF THE BRAIN W/O CONTRAST. PER HEATHER HE WILL CALL AT [phone] TO HAVE THE PTS SCHEDULED MRI. NOTIFIED THE PT REGARDING THE MRI HE WILL HAVE, PT STATED, "NO!I DONT NEED THAT. THE POLICE IS OUT TO GET ME." EXPLAIN RISK AND BENEFITS. PT STILL REFUSED X3. PT TRYING TO GET OUT OF BED. PLACED PT IN ASHLEY CHAIR FOR SAFTY. STAFF MEMBER MONITORING PT. PT CURRENTLY QUIET. CONTINUE TO MONITOR.
[2020-06-01 08:00] VITALS: BP 153/89
[2020-06-01] MEDS: PANTOPRAZOLE 40 MG TABLET.DR PO SCH (08:33)
--- NOTE | 2020-06-01 10:25 | NUR ---
GPS/RN-NOTES PATIENT IN THE DAY ROOM ,NOTED WITH ANXIETY UNABLE TO SIT STILL ,CONFUSE AND UNCOOPERATIVE ,NEEDS FREQUENT REDIRECTION AND INSTRUCTIONS. KLONOPIN 0.5MG P.O GIVEN PRN ORDER. WILL CONT. MONITORING FOR SAFETY AND BEHAVIOR.
--- NOTE | 2020-06-01 11:20 | NUR ---
GPS/RN-NOTES PATIENT STILL IN THE DAY ROOM AWAKE,ALERT,CALM NO ACUTE DISTRESS NOTED.
[2020-06-01] MEDS: QUETIAPINE FUMARATE 25 MG TABLET PO SCH ×2 (15:43→17:14)
[2020-06-01 16:00] VITALS: BP 120/71
--- NOTE | 2020-06-01 18:35 | NUR ---
GPS/RN-NOTES MRI NOT DONE TODAY DUE TO PATIENT WAS UNCOOPERATIVE AND UNABLE TO SIT STILL. DR. PRIEST MADE AWARE AND STATED WILL DO TOMORROW. WILL ENDORSE TO INCOMING SHIFT FOR FOLLOW UP AND CONTINUITY OF CARE.
[2020-06-01 20:01] VITALS: BP 129/72
--- NOTE | 2020-06-02 06:45 | NUR ---
GPS RN NOTES: PT. RESTING IN HIS ROOM, CALM NOTED AT THIS TIME . NO S/S OF DISTRESS NOTED ,NO CHANGE OF CONDITION NOTED , ALL CARE NEEDS MET ANTICIPATED. MED COMPLIANT , CONFUSED PARANOID EASILY AGITATED , NEEDS FREQUENTLY REDIRECTIONS ,WILL CONTINUE TO MONITOR FOR SAFETY BEHAVIOR, AND ENDORSE TO AM SHIFT FOR CONTINUITY OF CARE.
[2020-06-02 07:55] VITALS: BP 145/73
[2020-06-02] MEDS: QUETIAPINE FUMARATE 25 MG TABLET PO SCH ×3 (08:39→17:14)
[2020-06-02] MEDS: PANTOPRAZOLE 40 MG TABLET.DR PO SCH (08:39)
--- NOTE | 2020-06-02 14:09 | NUR ---
Pt. refused the MRI and said he has a panic attack and agreed for an IM med before the procedure. Dr. Kelley made aware and ordered Ativan 1 mg IM.
[2020-06-02] MEDS ORDERED: LORAZEPAM INJ 2 MG/ML VIAL IM ONE (14:30)
[2020-06-02 16:00] VITALS: BP 112/66
[2020-06-02 19:44] VITALS: BP 150/65
[2020-06-03 08:00] VITALS: BP 162/90
[2020-06-03] MEDS: PANTOPRAZOLE 40 MG TABLET.DR PO SCH (08:32)
[2020-06-03] MEDS: QUETIAPINE FUMARATE 25 MG TABLET PO SCH ×3 (08:32→16:30)
[2020-06-03] MEDS ORDERED: ETOMIDATE 2 MG/ML VIAL ONE (08:38)
[2020-06-03] MEDS ORDERED: ROCURONIUM BROMIDE 50 MG/5 ML ONE (08:38)
[2020-06-03 16:00] VITALS: BP 161/86
[2020-06-03 20:41] VITALS: BP 156/73
[2020-06-04] MEDS ORDERED: LORAZEPAM INJ 2 MG/ML VIAL ONE ×2 (04:04→04:24)
--- NOTE | 2020-06-04 04:09 | NUR ---
GPS RN NOTE:SEIZURE UNABLE TO SCAN MEDICATION ATIVAN 2 MG IM BUT WAS GIVEN AT LEFT THIGH. PHARMACY NOTIFIED
--- NOTE | 2020-06-04 04:10 | NUR ---
GPS RN NOTE: PT. HAVING SEIZURE ACTIVITY, RAPID RESPONSE CALLED. ED, CHARGE NURSE SAID TO TRANSFER TO ICU.
--- NOTE | 2020-06-04 04:43 | NUR ---
RT NOTE: RT CALL TO A RAPID RESPONSE AT ROOM 211, PT HAVING SEIZURES AND VOMITING NOTED, PT SHOWED SIGNS OF RES. DISTRESS, PT PLACED ON NRB, PT TRANSFERRED TO ICU AND INTUBATED ORALLY VIA ET TUBE 7.5 SECURED @ 23CM AT THE LIP LINE, CO2 COLORMETRIC COLOR CHANGE NOTED, CLEAR BILATERAL BREATH SOUNDS HEARD ON AUSCULTATION , PL PLACED ON MV, ON AC MODE SETTINGS CHARTED. ABG TO BE TAKEN IN A HOUR , VENT ALARMS ARE ON AND AUDIBLE, VENT PLUG IN RED OUTLET, AMBU BAG AT BEDSIDE, WILL CONTINUE TO MONITOR Addendum: 06/04/20 at 0448 by RADHA LOVE RT Amended: Links added.
[2020-06-04 04:45] LABS: BASOPHILS % (AUTO) 0.5 % (0.0-2.0); EOSINOPHILS % (AUTO) 1.5 % (0.0-6.0); HEMATOCRIT 46 % (39-51); HEMOGLOBIN 14.7 g/dL (13.5-17.5); LYMPHOCYTES # (AUTO) 2.6 /CMM (0.8-4.8); LYMPHOCYTES % (AUTO) 26.9 % (20.0-44.0); MEAN CORPUSCULAR HGB CONC 32 g/dl (31.0-36.0); MEAN CORPUSCULAR VOLUME 100 fL (80-96); MONOCYTES # (AUTO) 0.5 /CMM (0.1-1.30); MONOCYTES % (AUTO) 5.1 % (2.0-12.0); NEUTROPHILS # (AUTO) 6.3 /CMM (1.8-8.9); PLATELET COUNT (AUTO) 295 /CMM (150-450); RED BLOOD CELL COUNT(AUTO) 4.59 MIL/uL (4.5-6.0); WHITE BLOOD COUNT (AUTO) 9.5 K/uL (4.3-11.0)
[2020-06-04] MEDS ORDERED: PROPOFOL 100 ML ONE (04:54)
[2020-06-04 04:56] LABS: CALCIUM, SERUM 9.3 mg/dL (8.5-10.1); CARBON DIOXIDE 12 mmol/L (21-32); CHLORIDE 100 mmol/L (98-107); GLUCOSE 289 mg/dL (74-106); POTASSIUM 2.9 mmol/L (3.5-5.1); SODIUM SERUM 141 mmol/L (136-145); UREA NITROGEN, BLOOD 19 mg/dL (7-18)
[2020-06-04 04:59] VITALS: BP 164/90
[2020-06-04] MEDS ORDERED: PANTOPRAZOLE 40 MG VIAL IV SCH (05:00)
[2020-06-04] MEDS ORDERED: LEVETIRACETAM (500MG) 500 MG in IV NS 0.9% 100 ML IV SCH (05:00)
[2020-06-04] MEDS ORDERED: ACETAMINOPHEN 650 MG/20.3 ML UDC NG PRN (05:00)
--- NOTE | 2020-06-04 05:09 | NUR ---
GPS RN NOTE: RAPID RESPONSE UPON DOING MY ROUNDS AT 342, PT. WAS ASLEEP, NO ACUTE RESPIRATORY DISTRESS NOTED, SAFETY PRECAUTIONS OBSERVED AND MAINTAINED. AT 349 ENTERED TO ROOM, PT. WAS NOTED WITH SHALLOW BREATHING, HAD EPISODES OF VOMITING. HOB ELEVATED, V/S TAKEN AND NOTED BP: 164/90, HR:101,RR:20, O2 SAT: 94% IN RA. AT 351, PT NOTED WITH SEIZURE ACTIVITY LASTING 30 SEC. RAPID RESPONSE CALLED AT 352. RAPID RESPONSE TEAM ARRIVED AT 354, RT TEAM AT BEDSIDE SUCTIONING PT WITH LARGE AMOUNT OF THIN SECRETIONS PLACED ON NRB MASK ON 25 LITERS, NURSE REVIEW SCHEDULING COORDINATOR AT BEDSIDE. AT 402 PT HAD ANOTHER SEIZURE LASTING 40 SEC. ATIVAN 2 MG IM ADMINISTERED AT LEFT THIGH AT 408. AT 409 PT. WAS TRANSFERRED TO ICU VIA ACLS PROTOCOLS 419- DR. CASANOVA MADE AWARE OF TRANSFER 429 - DR. ROMAN NOTIFIED OF TRANSFER AND WITH ORDERS TO CONTINUE PSYCH MEDS. WILL NOTIFY FAMILY IN THE MORNING REGARDING PT. TRANSFER. Addendum: 06/04/20 at 0729 by ОЛЬГА GRIJALVA RN 429 - DR. ROMAN NOTIFIED OF TRANSFER AND WITH ORDERS TO CONTINUE PSYCH MEDS. ORDERED TO CONTINUE 8620 HOLD
[2020-06-04 05:11] LABS: ALBUMIN 3.8 g/dL (3.4-5.0); ALKALINE PHOSPHATASE 186 U/L (46-116); ASPARTATE AMINOTRANSFERASE 24 U/L (15-37); B-TYPE NATRIURETIC PEPTIDE 323 PG/ML (0-125); BILIRUBIN,TOTAL 0.5 mg/dL (0.2-1.0); MAGNESIUM 2.1 mg/dL (1.8-2.4); PHOSPHORUS 4.7 mg/dL (2.5-4.9); TOTAL PROTEIN, SERUM 8.5 g/dL (6.4-8.2)
[2020-06-04 05:25] LABS: ALANINE AMINOTRANSFERASE 35 U/L (12-78)
[2020-06-04] MEDS ORDERED: PROPOFOL 100 ML IV PRN (05:30)
[2020-06-04] MEDS ORDERED: Potassium Chloride 20 MEQ in IV D5/0.45 NACL 1,000 ML IV PRN (05:30)
[2020-06-04] MEDS ORDERED: LORAZEPAM INJ 2 MG/ML VIAL IV PRN (05:30)
[2020-06-04] MEDS ORDERED: PIPERACILLIN /TAZOBACTAM 3.375 G in IV D5W 50 ML IV SCH (06:00)
[2020-06-04 08:26] LABS: BILIRUBIN,DIRECT 0.2 mg/dL (0.0-0.2)
[2020-06-04] MEDS ORDERED: ATORVASTATIN 10 MG TABLET NG SCH (22:00)
--- NOTE | 2020-06-05 08:37 | NUR ---
SW DISCHARGE PLAN: Patient was transferred [facility] to ICU due to having seizures and vomiting, rapid response was called and patient was transferred remaining on a 5150 hold under the care of Dr. Reid. Patients discharge plan was arranged for patient to go to [facility] [id number] [place] [phone] ([phone]) via ambulance transportation. Spoke with Sadia, Admin Coordinator at the facility who states they are ready to accept the patient upon discharge. Patient is aware and agreeable with discharge plans. Patient is alert and oriented x2-3, is unable to plan for self-care at this time, however, is willing to accept care at [facility]. Patient denies any suicidal or homicidal ideation. Patient will follow-up at the facility with Dr. Kelley Psychiatrist and Dr. Painter Biomathematician. Patient presents with calm mood and congruent affect. Patients brother Dr. Trevor Taylor ([phone]) is aware and agreeable with discharge plans.
== END 2020-06-04 05:24 | disposition short-term general hospital (02) | DRG 885 ==
LOC: ER 16:06 → GPS 19:59 → ICU 06-04 04:12 → GPS 06-04 04:28 → ICU 06-04 04:50
PROVIDERS: ADMIT Psychiatry & Neurology Psychiatry; ATTEND Internal Medicine
PROC: 5A1935Z Respiratory Ventilation, Less than 24 Consecutive Hours (ICD-10-PCS; principal; 2020-06-04)
PROC: 0BH17EZ Insertion of Endotracheal Airway into Trachea, Via Natural or Artificial Opening (ICD-10-PCS; 2020-06-04)
DX: F29 Unspecified psychosis not due to a substance or known physiological condition (principal); N17.0 Acute kidney failure with tubular necrosis; A41.9 Sepsis, unspecified organism; J96.01 Acute respiratory failure with hypoxia; J69.0 Pneumonitis due to inhalation of food and vomit; G91.2 (Idiopathic) normal pressure hydrocephalus; D68.59 Other primary thrombophilia; F01.50 Vascular dementia, unspecified severity, without behavioral disturbance, psychotic disturbance, mood disturbance, and anxiety; K58.9 Irritable bowel syndrome, unspecified; M48.00 Spinal stenosis, site unspecified; Z79.899 Other long term (current) drug therapy; G30.9 Alzheimer's disease, unspecified; F02.80 Dementia in other diseases classified elsewhere, unspecified severity, without behavioral disturbance, psychotic disturbance, mood disturbance, and anxiety; E87.6 Hypokalemia; S86.912A Strain of unspecified muscle(s) and tendon(s) at lower leg level, left leg, initial encounter; X58.XXXA Exposure to other specified factors, initial encounter; Y92.9 Unspecified place or not applicable; F11.21 Opioid dependence, in remission; E78.5 Hyperlipidemia, unspecified; G47.00 Insomnia, unspecified; Z98.890 Other specified postprocedural states; K21.9 Gastro-esophageal reflux disease without esophagitis; F13.21 Sedative, hypnotic or anxiolytic dependence, in remission; Z74.09 Other reduced mobility; R56.9 Unspecified convulsions; G89.29 Other chronic pain; I70.0 Atherosclerosis of aorta; M54.10 Radiculopathy, site unspecified
CPT/HCPCS: 36415; 70450-TC; 70551-TC; 71045-TC; 73502; 73564-TC; 80048-TC; 80053-TC; 80061-TC; 80076-TC; 81000-TC; 82248-TC; 82962-TC; 83605-TC; 83735-TC; 83880; 84100-TC; 84443-TC; 84484-TC; 85025-TC; 87081-TC; 87086-TC; 97116-TC; 97530-TC; C9803; J1953; J2060; J2543; J3480; J3490; J7030; J7060

== ENCOUNTER 2020-06-04 05:31 | Inpatient (IN) | payer MEDICARE ==
[~2020-06-04] VITALS: Ht 167.6 cm; Wt 71.7 kg
[2020-06-04] VITALS (22 sets, daily range): BP systolic 92–149; BP diastolic 57–106
--- NOTE | 2020-06-04 04:15 | NUR ---
RN NOTE PT BROUGHT IN FROM GPS STATUS POST RAPID RESPONSE. PT INTUBATED BY ER DOCTOR. AT THE [facility]. VENT SETTINGS FOLLOWS. AC 18 TIDAL VOLUME 500, FIO2 100% PEEP 5. IV LINES INSERTED ON RIGHT AC # 20 AND RIGHT HAND # 18. PATIENT STARTED ON PROPOFOL DRIP. VAZQUEZ CATHETER INSERTED. PT PLACED ON REWORKER. VITAL SIGNS TAKEN.
--- NOTE | 2020-06-04 05:30 | NUR ---
RN NOTE RECEIVED PT FROM CIVIL STRUCTURAL ENGINEER FOR CONTINUATION OF CARE.
[~2020-06-04 05:31] MED LIST changes: +OMEP20TA5 PO; -OXYC15TA2 PO
--- NOTE | 2020-06-04 05:57 | NUR ---
COMMERCIAL JOURNEYMAN ELECTRICIAN WING COVERER IN GPS. PT GOT SZ & ASPIRATED. PT IS IN RESPIRATORY DISTRESS. PT WAS TRANSFERRED TO ICU. STARTED IV'S, ER MD PERFORMED STAT INTUBATION. PT WAS PLACED ON VENTILATOR AC MODE. SOFT WRIST RESTRAINTS APPLIED. F/C WAS INSERTED. STARTED PROPOFOL DRIP FOR SEDATION. STAT EKG & ABG DONE.
--- NOTE | 2020-06-04 05:59 | NUR ---
RN NOTE NOTIFIED DR. CASANOVA OF LACTIC ACID 17.1. MD WILL ENTER NEW ORDERS.
--- NOTE | 2020-06-04 06:01 | NUR ---
RN NOTE STAT ABG RESULTED. DR. CASANOVA MADE AWARE WITH NO NEW ORDERS .
[2020-06-04 06:12] LABS: ABG BASE EXCESS -2.4 mmol/L; ABG PCO2 39.3 mmHg (35.0-45.0); ABG PH 7.375 (7.350-7.450); ABG PO2 169.1 mmHg (75.0-100.0); AaDO2 504.6 mmHg; COHb 0.2 % (0.5-1.5); MetHb 0.3 % (0.0-1.5); O2Hb 98.5 % (94.0-97.0); PEEP,BG 5 cm H2O; SITE, ABG Left Radial; VT, ABG 500 mL
[2020-06-04] MEDS: PROPOFOL 100 ML IV PRN ×3 (06:20→17:58)
--- NOTE | 2020-06-04 06:27 | NUR ---
RN NOTE SPOKE TO SANKET AREVALO (BROTHER) AND GAVE UPDATE REGARDING PATIENT' CONDITION.
--- NOTE | 2020-06-04 07:25 | NUR ---
RN NOTE PT CURRENTLY INTUBATED AND SEDATED ON PROPOFOL ORDERED. SAFETY MEASURES IN PLACE ,ENDORSED TO MORNING RN FOR CONTINUATION OF CARE.
[2020-06-04] MEDS ORDERED: Z GUARD REMEDY 2 OZ OINT TP PRN (07:30)
[2020-06-04] MEDS ORDERED: MAG HYDROX/AL HYDROX/SIMETH 30 ML UDC PO PRN (07:30)
[2020-06-04] MEDS ORDERED: MAGNESIUM HYDROXIDE 30 ML UDC PO PRN (07:30)
[2020-06-04] MEDS ORDERED: ONDANSETRON HCL/PF 4 MG/2 ML VIAL IVP PRN (07:30)
[2020-06-04] MEDS ORDERED: ACETAMINOPHEN 325 MG TABLET PO PRN (07:30)
--- NOTE | 2020-06-04 07:30 | NUR ---
HISTORICAL SITE GUIDE INITIAL NOTE RECEIVED PATIENT SEDATED. NO RESPIRATORY DISTRESS NOTED. NO S/S OF PAIN OR DISCOMFORT. ETT IN PLACE. TOLERATING CURRENT VENT SETTINGS. RIGHT NGT PATENT, INTACT, IN PLACE ON LIS NO OUTPUT AT THIS TIME. ON TELE MONITOR SINUS TACH. F/C PATENT AND DRAINING BY GRAVITY. PATIENT WITH ARPIT RUNNING AT 1 MCG/KG/MIN, LEVO AT 0.1 MCG/KG/MIN AND DIP AT 30 MCG/KG/MIN. HOB ELEVATED. SIDE RAILS UP AND LOCKED. BED KEPT AT LOWEST POSITION. WILL CONTINUE TO MONITOR. Addendum: 06/04/20 at 0836 by KADE RIDDLE RN WRONG PATIENT
[2020-06-04 08:04] LABS: BASOPHILS % (AUTO) 0.5 % (0.0-2.0); EOSINOPHILS % (AUTO) 0.2 % (0.0-6.0); HEMATOCRIT 45 % (39-51); HEMOGLOBIN 14.6 g/dL (13.5-17.5); LYMPHOCYTES # (AUTO) 0.5 /CMM (0.8-4.8); LYMPHOCYTES % (AUTO) 5.9 % (20.0-44.0); MEAN CORPUSCULAR HGB CONC 33 g/dl (31.0-36.0); MEAN CORPUSCULAR VOLUME 96 fL (80-96); MONOCYTES # (AUTO) 0.5 /CMM (0.1-1.30); NEUTROPHILS % (AUTO) 88.4 % (43.0-81.0); PLATELET COUNT (AUTO) 268 /CMM (150-450); RED BLOOD CELL COUNT(AUTO) 4.66 MIL/uL (4.5-6.0)
[2020-06-04 08:28] LABS: ALANINE AMINOTRANSFERASE 34 U/L (12-78); ALBUMIN 3.9 g/dL (3.4-5.0); ALKALINE PHOSPHATASE 181 U/L (46-116); ASPARTATE AMINOTRANSFERASE 27 U/L (15-37); BILIRUBIN,DIRECT 0.2 mg/dL (0.0-0.2); BILIRUBIN,TOTAL 0.6 mg/dL (0.2-1.0); CALCIUM, SERUM 9.4 mg/dL (8.5-10.1); CARBON DIOXIDE 26 mmol/L (21-32); CHLORIDE 105 mmol/L (98-107); CREATININE 1.5 mg/dL (0.6-1.3); GLUCOSE 107 mg/dL (74-106); POTASSIUM 3.6 mmol/L (3.5-5.1); SODIUM SERUM 143 mmol/L (136-145); TOTAL PROTEIN, SERUM 8.3 g/dL (6.4-8.2); UREA NITROGEN, BLOOD 18 mg/dL (7-18)
[2020-06-04] MEDS: IV NS 0.9% 1,000 ML IV PRN (08:36)
[2020-06-04] MEDS ORDERED: LORAZEPAM INJ 2 MG/ML VIAL IV PRN (09:30)
--- NOTE | 2020-06-04 09:33 | NUR ---
FIREARMS SPECIALIST NOTE SEEN AND EXAMINED BY CAE ENGINEER DR FALL, RELAYED BROTHER WANTS TO SPEAK WITH HIM. VENT CHANGED TO AC 16, 450, FIO2 50%, PEEP 5. ASKED IF HE WOULD LIKE AN ABG AFTER. STATED NO NEED. WILL CONTINUE TO MONITOR.
[2020-06-04] MEDS: LEVETIRACETAM (500MG) 1,000 MG in IV NS 0.9% 100 ML IV SCH ×2 (10:16→21:38)
[2020-06-04] MEDS: ASPIRIN 81 MG TAB.CHEW PO SCH (10:30)
--- NOTE | 2020-06-04 13:15 | NUR ---
MECHANICAL SYSTEMS ENGINEER NOTE INFORMED DR HAWLEY REGARDING PATIENTS URINE APPEARANCE, SEDIMENTS AND CLOUDY. WITH ORDERS FOR URINE CULTURE. INFORMED PATIENT HAS NO DVT PPX, WITH ORDERS FOR LOVENOX 40MG DAILY. NOTED AND CARRIED OUT.
--- NOTE | 2020-06-04 17:01 | NUR ---
RT NOTE PT REMAINS MECHANICALLY VENTILATED VIA 7.5 ETT AT 24 CM LIP. CUFF INFLATED. ETT SECURE. VENTILATOR SETTINGS PRESCRIBED. ALARMS SET PER PROTOCOL AND AUDIBLE. VENT PLUGGED IN TO RED OUTLET. AMBU BAG AT BED SIDE. NO DISTRESS NOTED AT MOMENT. Addendum: 06/04/20 at 1704 by MARU ROMO RT Amended: Links added.
--- NOTE | 2020-06-04 19:30 | NUR ---
RN NOTES RECEIVED PATIENT SEDATED WITH DIPRIVAN. ORALLY INTUBATED WITH ETT 7.5 AND 23 CM AT LIPLINE WITH VENT SETTING OF AC 18 TV 500 FIO2 100% AND PEEP 5 TOLERATED WELL SATURATION >95%. NO ACUTE RESPIRATORY DISTRESS. NO ACTIVE SEIZURE NOTED. SR ON TELE MONITOR. IV SITE ON RAC G 20 AND RIGHT HAND G 22 WITH NS @ 75 ML/HR AND PROPOFOL @ 15 MCG/KG/ MIN. ALL IV ARE INTACT AND PATENT. VAZQUEZ CATH OFF FROM THE FLOOR DRAINED WITH MARTINEZ COLOR URINE. WILL CLOSELY MONITOR.
--- NOTE | 2020-06-04 20:32 | NUR ---
RN NOTES RECEIVED A CALL FROM DR. ROMAN (PSYCHOLOGIST) TO DC HOLD.NOTED AND CARRIED OUT ORDER.
[2020-06-05] VITALS (24 sets, daily range): BP systolic 91–149; BP diastolic 54–92
[2020-06-05] MEDS: IV NS 0.9% 1,000 ML IV PRN ×2 (00:18→15:43)
--- NOTE | 2020-06-05 03:57 | NUR ---
RT NOTE Pt rec'd orally intubated via ETT sz 7.5 secured @ 24cm at the lipline. Pt on [facility] vent on AC mode settings as charted. Pt shows no signs of resp distress or sob. Pt sx'd for thick mod amt of yellow secretions. alarms are set and audible. Vent plugged into red outlet. Ambu bag bedside. Will continue to monitor closely. Addendum: 06/05/20 at 0359 by KILO PRINCE RT Amended: Links added.
[2020-06-05 04:36] LABS: BASOPHILS % (AUTO) 0.2 % (0.0-2.0); EOSINOPHILS % (AUTO) 1.1 % (0.0-6.0); HEMATOCRIT 41 % (39-51); HEMOGLOBIN 13.3 g/dL (13.5-17.5); LYMPHOCYTES # (AUTO) 1.3 /CMM (0.8-4.8); LYMPHOCYTES % (AUTO) 16.6 % (20.0-44.0); MEAN CORPUSCULAR HGB CONC 33 g/dl (31.0-36.0); MEAN CORPUSCULAR VOLUME 98 fL (80-96); MONOCYTES # (AUTO) 0.5 /CMM (0.1-1.30); MONOCYTES % (AUTO) 6.7 % (2.0-12.0); NEUTROPHILS # (AUTO) 5.8 /CMM (1.8-8.9); NEUTROPHILS % (AUTO) 75.4 % (43.0-81.0); PLATELET COUNT (AUTO) 209 /CMM (150-450); RED BLOOD CELL COUNT(AUTO) 4.15 MIL/uL (4.5-6.0); WHITE BLOOD COUNT (AUTO) 7.7 K/uL (4.3-11.0)
[2020-06-05 04:47] LABS: CALCIUM, SERUM 8.7 mg/dL (8.5-10.1); CARBON DIOXIDE 26 mmol/L (21-32); CHLORIDE 108 mmol/L (98-107); CREATININE 1.4 mg/dL (0.6-1.3); GLUCOSE 103 mg/dL (74-106); POTASSIUM 3.3 mmol/L (3.5-5.1); SODIUM SERUM 144 mmol/L (136-145); UREA NITROGEN, BLOOD 20 mg/dL (7-18)
[2020-06-05 04:50] LABS: MAGNESIUM 2.2 mg/dL (1.8-2.4); PHOSPHORUS 2.1 mg/dL (2.5-4.9)
--- NOTE | 2020-06-05 07:00 | NUR ---
RN NOTES PATIENT REMAINED SEDATED. NO ACUTE RESPIRATORY DISTRESS TOLERATED ETT AND VENT SETTING ORDERED, NO CHANGES. SR ON TELE MONITOR. SATURATION >96%. AFEBRILE. IV SITE ON RAC AND RH INTACT AND PATENT WITH NS @ 75 ML/HR AND PROPOFOL TITRATED PROTOCOL ORDERED. KEPT PT CLEAN AND DRY. TURNED AND REPOSITIONED Q2H AND PRN. SKIN CARE PROVIDED. WILL ENDORSED CONTINUITY OF CARE TO AM NURSE.
--- NOTE | 2020-06-05 07:31 | NUR ---
RECEIVED PATIENT IN BED. NO ACUTE DISTRESS NOTED. PATIENT SEDATED ON PROPOFOL. PATIENT INTUBATED, SATURATING WELL AT 96-98%. PATIENT ON PLATFORM MILL SUPERVISOR, SINUS RHYTHM NOTED WITH HEART RATE IN 80S. PATIENT NPO STATUS ACKNOWLEDGED. PATIENT RIGHT ANTECUBITAL IV ACCESS INTACT, PATENT, FLUSHED WELL. PATIENT RIGHT HAND IV ACCESS INTACT, PATENT, FLUSHED WELL. PATIENT VAZQUEZ CATHETER IN PLACE, INTACT, DRAINING TO GRAVITY. PATIENT RESTRAINTS IN PLACE, SAFETY MEASURES MAINTAINED. PATIENT SAFETY MEASURES MAINTAINED. WILL CONTINUE TO MONITOR.
--- NOTE | 2020-06-05 07:53 | NUR ---
RT Pt received orally intubated on mechanical ventilation with noted settings. Vent alarms are set and audible with BVM by bedside, vent is plugged into red outlet. No SOB or respiratory distress noted. Addendum: 06/05/20 at 0854 by BRIELLE MCDONALD RT Amended: Links added.
--- NOTE | 2020-06-05 08:37 | NUR ---
SW DISCHARGE PLAN: Patient was transferred from [facility] to [facility] due to having seizures and vomiting, rapid response was called and patient was transferred remaining on a 5150 hold under the care of Dr. Reid. Patients discharge plan was arranged for patient to go to [facility] [id number] [place] [phone] ([phone]) via ambulance transportation. Spoke with Sadia, Admin Coordinator at the facility who states they are ready to accept the patient upon discharge. Patient is aware and agreeable with discharge plans. Patient is alert and oriented x2-3, is unable to plan for self-care at this time, however, is willing to accept care at [facility]. Patient denies any suicidal or homicidal ideation. Patient will follow-up at the facility with Dr. Kelley Psychiatrist and Dr. Painter Insurance Follow Up Rep. Patient presents with calm mood and congruent affect. Patients brother Dr. Trevor Taylor ([phone]) is aware and agreeable with discharge plans.
[2020-06-05] MEDS: ASPIRIN 81 MG TAB.CHEW PO SCH (08:40)
[2020-06-05] MEDS: ENOXAPARIN SODIUM 40 MG/0.4 ML DISP.SYRIN SQ SCH (08:40)
[2020-06-05] MEDS: LEVETIRACETAM (500MG) 1,000 MG in IV NS 0.9% 100 ML IV SCH ×2 (09:14→21:24)
--- NOTE | 2020-06-05 09:35 | NUR ---
RT Weaning started per Dr. Byers orders, pt is off sedation and is awake. Pt placed on CPAP 5, 50%, PSV 7, tolerating well at this time. No SOB or respiratory distress noted. Addendum: 06/05/20 at 1118 by BRIELLE MCDONALD RT Amended: Links added.
[2020-06-05] MEDS: POTASSIUM PHOSPHATE MM 7.5 MMOL in IV NS 0.9% 100 ML IV SCH ×2 (10:04→12:03)
[2020-06-05 10:59] LABS: ABG BASE EXCESS -2.3 mmol/L; ABG OXYGEN SATURATION 96.6 % (92.0-98.5); ABG PCO2 34.5 mmHg (35.0-45.0); ABG PH 7.413 (7.350-7.450); ABG PO2 87.2 mmHg (75.0-100.0); AaDO2 230.5 mmHg; COHb 0.1 % (0.5-1.5); MetHb 0.5 % (0.0-1.5); PEEP,BG 5 cm H2O; SITE, ABG Right Radial; VENT MODE, BG CPAP / PS 7
--- NOTE | 2020-06-05 11:02 | NUR ---
RT Pt placed back on AC mode with previous settings per Dr. Melendez request. Although ABG was within normal limits pt was mildly tachypneic with respirations 30-35. Pt did not appear to have increase WOB or SOB. Addendum: 06/05/20 at 1118 by BRIELLE MCDONALD RT Amended: Links added.
[2020-06-05] MEDS: CEFEPIME 2 GM in IV D5W 100 ML IV SCH (12:03)
--- NOTE | 2020-06-05 13:52 | NUR ---
PATIENT TITRATED OFF DIPRIVAN ORDERED IN ORDER TO DETERMINE IF PATIENT CAN BE WEANED FROM VENTILATOR. PATIENT PUT ON SIMV, THEN CPAP, BUT PATIENT BECAME TACHYPNIC (RESPIRATIONS IN 40S), SO PATIENT PUT BACK ON SIMV MODE. PER DOCTOR HOMERO, JOSE ALEJANDRO NOT PUTTING PATIENT BACK ON DIPRIVAN. PATIENT NOT AGITATED, TOLERATING IT WELL. WILL CONTINUE TO MONITOR.
--- NOTE | 2020-06-05 18:30 | NUR ---
PATIENT IN BED. NO ACUTE DISTRESS NOTED. PATIENT AWAKE, EYES OPEN AND ABLE TO FOLLOW SOME COMMANDS. PATIENT INTUBATED, SATURATING WELL AT 96-98%. PATIENT ON LOSS PREVENTION INVESTIGATOR, SINUS RHYTHM NOTED WITH HEART RATE IN 80S AND 90S. PATIENT NPO STATUS ACKNOWLEDGED. PATIENT RIGHT ANTECUBITAL IV ACCESS INTACT, PATENT, FLUSHED WELL. PATIENT RIGHT HAND IV ACCESS INTACT, PATENT, FLUSHED WELL. PATIENT VAZQUEZ CATHETER IN PLACE, INTACT, DRAINING TO GRAVITY. PATIENT RESTRAINTS IN PLACE, SAFETY MEASURES MAINTAINED. PATIENT SAFETY MEASURES MAINTAINED. WILL ENDORSE PLAN OF CARE TO ONCOMING SHIFT FOR CONTINUITY OF CARE
--- NOTE | 2020-06-05 19:20 | NUR ---
RN NOTES RECEIVED PATIENT AWAKE ALERT, FOLLOWS COMMAND. ORALLY INTUBATED WITH ETT 7.5 AND 24 CM AT LIPLINE WITH VENT SETTING OF AC 16 TV 450 FIO2 50% AND PEEP 5 TOLERATED WELL SATURATION >97%. NO APPARENT DISTRESS. NO ACTIVE SEIZURE. SR ON TELE MONITOR. IV SITE ON RAC G 20 AND RIGHT HAND G 22 WITH NS @ 75 ML/HR, ALL IV ARE INTACT AND PATENT. VAZQUEZ CATH OFF FROM THE FLOOR DRAINED WITH MARTINEZ COLOR URINE. WILL CLOSELY MONITOR. KEPT PT CLEAN AND DRY. WILL CONTINUE TO MONITOR.
--- NOTE | 2020-06-05 19:50 | NUR ---
RT pt received on mechanical vent, with current settings. vent plugged in to red outlet. ambu bag at [facility]. alarms on and audible. no sob/no resp distress at this time. will continue to monitor.
[2020-06-06] VITALS (25 sets, daily range): BP systolic 95–175; BP diastolic 52–109
[2020-06-06] MEDS: CEFEPIME 2 GM in IV D5W 100 ML IV SCH ×3 (00:03→23:59)
[2020-06-06 04:16] LABS: BASOPHILS % (AUTO) 0.6 % (0.0-2.0); EOSINOPHILS % (AUTO) 0.7 % (0.0-6.0); HEMATOCRIT 36 % (39-51); HEMOGLOBIN 11.8 g/dL (13.5-17.5); LYMPHOCYTES # (AUTO) 0.8 /CMM (0.8-4.8); LYMPHOCYTES % (AUTO) 18.8 % (20.0-44.0); MEAN CORPUSCULAR HGB CONC 33 g/dl (31.0-36.0); MEAN CORPUSCULAR VOLUME 97 fL (80-96); MONOCYTES # (AUTO) 0.3 /CMM (0.1-1.30); MONOCYTES % (AUTO) 6.9 % (2.0-12.0); NEUTROPHILS # (AUTO) 3.2 /CMM (1.8-8.9); PLATELET COUNT (AUTO) 186 /CMM (150-450); RED BLOOD CELL COUNT(AUTO) 3.69 MIL/uL (4.5-6.0); WHITE BLOOD COUNT (AUTO) 4.4 K/uL (4.3-11.0)
[2020-06-06 04:23] LABS: CALCIUM, SERUM 8.6 mg/dL (8.5-10.1); CREATININE 1.2 mg/dL (0.6-1.3); MAGNESIUM 2.1 mg/dL (1.8-2.4); POTASSIUM 3.1 mmol/L (3.5-5.1)
[2020-06-06] MEDS: IV NS 0.9% 250 ML IV PRN (05:49)
[2020-06-06] MEDS: IV NS 0.9% 1,000 ML IV PRN ×2 (05:49→19:14)
--- NOTE | 2020-06-06 07:00 | NUR ---
RN NOTES PATIENT IS MORE AWAKE ALERT AND FOLLOW COMMAND, ABLE TO NODS TO ANSWER REMAINED WITH ETT AND VENT SETTING AT THE SAME SETTING. NO SIGNIFICANT CHANGES NOTED. REMAINED NPO. AFEBRILE. VSS. SB/SR ON TELE MONITOR. LOWEST HR 53 WHEN PT ON DEEP SLEEP. VAZQUEZ CATH DRAINED WITH MARTINEZ SEDIMENTED COLOR URINE. KEPT PT CLEAN AND DRY. REPOSITIONED Q2H AND PT COMFORTABLE, ENDORSED CONTINUITY OF CARE TO AM NURSE.
--- NOTE | 2020-06-06 07:25 | NUR ---
RT Pt received orally intubated on mechanical ventilation with noted settings. Pt is awake and tracks with eyes. Vent alarms are set and audible with BVM by bedside, vent is plugged into red outlet. No SOB or respiratory distress noted. Addendum: 06/06/20 at 1019 by BRIELLE MCDONALD RT Amended: Links added.
--- NOTE | 2020-06-06 08:00 | NUR ---
research agricultural engineer note Patient in bed awake ,open both eyes ,able to follow simple command, not in distress, saturation 98% with Reddy cath to gravity with yellow cloud urine noted, on tele monitor sr hr 77, on npo status at this time , on ivf as ordered, rac and ht hand hl intact and flushed well , on seizure precaution as ordered,on soft restrain as ordered, bed in lowest and locked position , will cont to monitor
[2020-06-06] MEDS: ASPIRIN 81 MG TAB.CHEW PO SCH (08:06)
[2020-06-06] MEDS: ENOXAPARIN SODIUM 40 MG/0.4 ML DISP.SYRIN SQ SCH (08:08)
[2020-06-06] MEDS ORDERED: POTASSIUM PHOSPHATE MM 15 MMOL in IV NS 0.9% 250 ML IV SCH ×2 (08:30→09:00)
--- NOTE | 2020-06-06 08:35 | NUR ---
travel registered nurse icu note seen by dr lopez production team member with order to change to c pap mode of vent aime at bedside
--- NOTE | 2020-06-06 09:03 | NUR ---
WOUND CARE CONSULT: PT SEEN FOR SKIN ASSESSMENT AND NOTED TO HAVE BONY SACRAL AREA WITH BLANCHABLE REDNESS AND DRY SCABS TO BILATERAL KNEES, PRESENT ON ADMISSION. RECOMMENDATIONS MADE FOR SKIN PROTECTION. DISCUSSED WITH NURSING STAFF. CURRENT GEE SCORE IS 13. MD IN AGREEMENT WITH PLAN OF CARE.
[2020-06-06] MEDS: LEVETIRACETAM (500MG) 1,000 MG in IV NS 0.9% 100 ML IV SCH (09:05)
[2020-06-06 09:28] LABS: ABG BASE EXCESS -4.7 mmol/L; ABG OXYGEN SATURATION 99.3 % (92.0-98.5); ABG PCO2 32.1 mmHg (35.0-45.0); ABG PH 7.394 (7.350-7.450); ABG PO2 166.1 mmHg (75.0-100.0); AaDO2 154.3 mmHg; COHb 0.3 % (0.5-1.5); MetHb 0.1 % (0.0-1.5); O2Hb 98.9 % (94.0-97.0); PEEP,BG 5 cm H2O; SITE, ABG Right Radial; VENT MODE, BG CPAP / PSV 10
--- NOTE | 2020-06-06 09:35 | NUR ---
RT Pt extubated per Dr. Melendez orders. Pt placed on 3L nasal cannula with adequate SpO2. No SOB or respiratory distress noted. Addendum: 06/06/20 at 1019 by BRIELLE MCDONALD RT Amended: Links added.
--- NOTE | 2020-06-06 10:07 | NUR ---
SENIOR DESIGN ENGINEER NOTE ABG DONE PATIENT EXTUBATED ORDERED NEW HL ON LT HAND ANGELINA 20 INSERTED WITH GOOD BLOOD RETURN
--- NOTE | 2020-06-06 10:52 | NUR ---
AUTO DAMAGE APPRAISER NOTE ON 3L NC, NO SOB NOTED , DR CLEMENTE PSYCHIATRIST NOTIFIED THAT PATIENT NOT TALKING AT THIS TIME, NO NEW ORDER GIVEN ,WILL F\U
[2020-06-06] MEDS: POTASSIUM CL. PREMIX PERIPHER. 50 ML IV SCH ×2 (11:08→12:18)
[2020-06-06 13:23] LABS: *SPE ALPHA-1-GLOBULIN 0.5 g/dL (0.0-0.4); *SPE ALPHA-2-GLOBULIN 0.9 g/dL (0.4-1.0); *SPE BETA GLOBULIN 0.8 g/dL (0.7-1.3)
[2020-06-06 13:24] LABS: *SPE A/G RATIO 0.9 (0.7-1.7); *SPE GLOBULIN, TOTAL 3.3 g/dL (2.2-3.9); *SPE M-SPIKE 0.6 g/dL (Not Observed); *SPEGAMMA GLOBULIN 1.1 g/dL (0.4-1.8)
--- NOTE | 2020-06-06 13:30 | NUR ---
RUG CUTTER NOTE WITH SEVERE CONGESTION , FREQUENT SUCTION DONE, RT AT BEDSIDE Addendum: 06/06/20 at 1331 by SANTIAGO KEYES RN MIDLINE ON RT UPPER ARM ANGELINA 18 INSERTED ORDERED
--- NOTE | 2020-06-06 14:30 | NUR ---
COMPOSITION WEATHERBOARD APPLIER NOTE SPOKE WITH DR HAWLEY NOTIFIED THAT PATIENT IS EXTUBATED AND ON 4L NC ,SATURATION 98% OK TO HAS SWALLOW EVAL TOMORROW
--- NOTE | 2020-06-06 15:19 | NUR ---
ASSOCIATE PATHOLOGIST NOTE PER KARON QUINN TO GIVE FLU VACCINE TODAY AND PNA VACCINE UPON DISCHARGE DR HAWLEY NOTIFIED Addendum: 06/06/20 at 1626 by SANTIAGO KEYES RN CORRECTION PER BROTHER KAI TO GIVE FLU VACCINE
[2020-06-06] MEDS ORDERED: INFLUENZA VACCINE 2020-21 0.5 ML DISP.SYRIN IM ONE (16:00)
--- NOTE | 2020-06-06 16:26 | NUR ---
PAPER CONE MACHINE TENDER NOTE DR PRIEST NEUROLOGIST AT BEDSIDE NOTIFIED THAT PATIENT CANT TALK BUT OPEN HIS EYES CAN FOLLOW SIMPLE COMMAND , WITH ORDER EEG ,STSTE THAT POSSIBLE SMALL SEIZURE EXPERIENCING WILL F\U
--- NOTE | 2020-06-06 17:00 | NUR ---
curriculum and assessment coordinator note noted with severe congestion , rt at bedside nasopharyngeal suction done , placed on 6l nc ,saturation now 100% ,will f\u
--- NOTE | 2020-06-06 17:21 | NUR ---
RIM TURNING FINISHER NOTE UNABLE TO REMOVE SOFT RESTAN ,PATIENT STILL AT RISK TO REMOVE ALL LINES ,WILL MONITOR WELLNESS PROGRAM ADMINISTRATOR AT BEDSIDE DOING EEG
[2020-06-06] MEDS: LORAZEPAM INJ 2 MG/ML VIAL IV PRN (17:34)
--- NOTE | 2020-06-06 17:46 | NUR ---
curriculum coordinator note dr rachel neurologist called notified that during eeg patient has seizure episodes ordered Ativan 1 mg iv now and Keppra 1 gm now iv and 1500 bid , will f\u
[2020-06-06] MEDS ORDERED: LEVETIRACETAM (500MG) 1,000 MG in IV NS 0.9% 100 ML IV STA (17:52)
--- NOTE | 2020-06-06 18:33 | NUR ---
SPECIAL FORCES ENGINEER SERGEANT NOTE PATIENT IN BED ,ON 6L OF NC ,SATURATION 100% ON SEIZURE PRECAUTION , WITH VAZQUEZ CATH TO GRAVITY , ON IVF ORDERED ,BED IN LOWEST AND LOCKED POSITION , WILL CONT TO MONITOR
--- NOTE | 2020-06-06 20:00 | NUR ---
SALES REPRESENTATIVE METALS NOTE PT IN BED ASLEEP, AROUSABLE. A/O X 1, FOLLOW SOME COMMANDS. NO DISTRESS OR DISCOMFORT NOTED. NO S/S OF PAIN NOTED. ON 6L VIA N/C O2 SAT 100% WITH HUMIDIFIER. ON TELE SR 66 F/C INTACT AND PATENT YELLOWISH COLOR URINE NOTED. BILATERAL SOFT WRIST RESTRAINTS ON. IVF NS INFUSING AT 75 ML/HR AT YAHAIRA MIDLINE, NO S/S OF INFILTRATION NOTED. RFA #22G AND LT HAND #20G SL INTACT AND PATENT. REPOSITION HIM FOR COMFORT AND SKIN MANAGEMENT. KEPT HIM DRY AND CLEAN. ALL NEEDS ATTENDED. VSS. CONTINUE TO MONITOR HIM.
--- NOTE | 2020-06-06 20:30 | NUR ---
ICU/HOT STAMP OPERATOR-LATE ENTRY WAS HELPING NIGHT RN WITH IV DOCUMENTATION, WAS SCANNED BY CHARGE NURSE AT [facility]. PRIMARY NURSE DOING ADMISSION DOCUMENTATION. Addendum: 06/07/20 at 0331 by NIKKIE DHILLON LVN 06/04/20@0600-NGUYEN SCALE WAS UPDATED TO REFLECT THE SCAN MEDICATION AT 0620.
--- NOTE | 2020-06-06 21:07 | NUR ---
ARCHAEOLOGY PROFESSOR NOTE: Rec'd report from MERI Lewis for JANET.
[2020-06-06] MEDS: LEVETIRACETAM (500MG) 1,500 MG in IV NS 0.9% 100 ML IV SCH (21:09)
--- NOTE | 2020-06-06 21:36 | NUR ---
JACKERMAN NOTE PT ENDORSE TO BLADIMIR FOR CONTINUE TO CARE.
[2020-06-07] VITALS (34 sets, daily range): BP systolic 93–181; BP diastolic 22–97
[2020-06-07 04:45] LABS: BASOPHILS % (AUTO) 0.4 % (0.0-2.0); EOSINOPHILS % (AUTO) 4.2 % (0.0-6.0); HEMATOCRIT 34 % (39-51); HEMOGLOBIN 11.1 g/dL (13.5-17.5); LYMPHOCYTES # (AUTO) 0.9 /CMM (0.8-4.8); LYMPHOCYTES % (AUTO) 23.4 % (20.0-44.0); MEAN CORPUSCULAR HGB CONC 33 g/dl (31.0-36.0); MEAN CORPUSCULAR VOLUME 97 fL (80-96); MONOCYTES # (AUTO) 0.4 /CMM (0.1-1.30); MONOCYTES % (AUTO) 9.2 % (2.0-12.0); NEUTROPHILS # (AUTO) 2.5 /CMM (1.8-8.9); NEUTROPHILS % (AUTO) 62.8 % (43.0-81.0); PLATELET COUNT (AUTO) 193 /CMM (150-450); RED BLOOD CELL COUNT(AUTO) 3.52 MIL/uL (4.5-6.0)
[2020-06-07 04:57] LABS: CALCIUM, SERUM 8.8 mg/dL (8.5-10.1); CARBON DIOXIDE 22 mmol/L (21-32); CHLORIDE 112 mmol/L (98-107); GLUCOSE 91 mg/dL (74-106); POTASSIUM 3.2 mmol/L (3.5-5.1); SODIUM SERUM 146 mmol/L (136-145); UREA NITROGEN, BLOOD 16 mg/dL (7-18)
--- NOTE | 2020-06-07 06:52 | NUR ---
STITCH RUBBER CLOSING NOTES: Pt remains stable throughout shift. No acute changes noted. No SOB or resp distress noted throughout shift. Remains on 6LPM NC tolerating well. ST on tele monitor. IV sites patent and flushing w/ NS infusing at 75ml/hr. Reddy cath in place patent and draining urine via gravity. Kept clean/dry. All due meds given as ordered. Safety measures in place. Will endorse to oncoming nurse for JANET.
--- NOTE | 2020-06-07 07:10 | NUR ---
RECEIVED PATIENT IN BED. NO ACUTE DISTRESS NOTED. PATIENT ALERT & ORIENTED X1, PATIENT AWAKE, INTERACTIVE AND ABLE TO FOLLOW SIMPLE COMMANDS. PATIENT ON MANNEQUIN MOUNTER, NORMAL SINUS RHYTHM AND SINUS TACHYCARDIA NOTED. PATIENT NPO STATUS ACKNOWLEDGED. PATIENT RIGHT UPPER ARM MIDLINE IN PLACE, INTACT, PATENT, FLUSHED WELL. PATIENT VAZQUEZ CATHETER IN PLACE, INTACT, DRAINING TO GRAVITY. PATIENT RESTRAINTS IN PLACE, SAFETY MEASURES MAINTAINED. PATIENT SAFETY MEASURES MAINTAINED. WILL CONTINUE TO MONITOR.
[2020-06-07] MEDS: POTASSIUM CL. PREMIX PERIPHER. 50 ML IV SCH ×4 (08:14→10:56)
[2020-06-07] MEDS: ASPIRIN 81 MG TAB.CHEW PO SCH (08:15)
[2020-06-07] MEDS: ENOXAPARIN SODIUM 40 MG/0.4 ML DISP.SYRIN SQ SCH (08:16)
[2020-06-07] MEDS: POTASSIUM PHOSPHATE MM 7.5 MMOL in IV NS 0.9% 100 ML IV SCH ×2 (08:27→10:59)
[2020-06-07] MEDS: LEVETIRACETAM (500MG) 1,500 MG in IV NS 0.9% 100 ML IV SCH ×2 (08:59→21:22)
[2020-06-07] MEDS ORDERED: hydrALAZINE HCL IV 20 MG VIAL IV PRN (09:00)
[2020-06-07] MEDS: IV D5/0.45 NACL 1,000 ML IV SCH ×2 (09:01→23:00)
[2020-06-07] MEDS ORDERED: phenytoin SODIUM IV 1,000 MG in IV NS 0.9% 100 ML IV ONE (11:00)
[2020-06-07] MEDS ORDERED: NS 0.9% IV ONE (17:00)
[2020-06-07] MEDS ORDERED: LACOSAMIDE IV ONE (17:00)
[2020-06-07] MEDS ORDERED: VIMPAT 200 MG in IV NS 0.9% 100 ML IV ONE ×2 (17:30→18:30)
--- NOTE | 2020-06-07 18:46 | NUR ---
PATIENT IN BED. NO ACUTE DISTRESS NOTED. PATIENT ALERT & ORIENTED X1, PATIENT AWAKE, INTERACTIVE AND ABLE TO FOLLOW SIMPLE COMMANDS. PATIENT ON WELLNESS GUIDE, NORMAL SINUS RHYTHM AND SINUS TACHYCARDIA NOTED. PATIENT NPO STATUS ACKNOWLEDGED. PATIENT RIGHT UPPER ARM MIDLINE IN PLACE, INTACT, PATENT, FLUSHED WELL. PATIENT VAZQUEZ CATHETER IN PLACE, INTACT, DRAINING TO GRAVITY. PATIENT RESTRAINTS IN PLACE, SAFETY MEASURES MAINTAINED. PATIENT SAFETY MEASURES MAINTAINED. WILL ENDORSE PLAN OF CARE TO ONCOMING SHIFT FOR CONTINUITY OF CARE
[2020-06-07] MEDS: IV NS 0.9% 1,000 ML IV PRN (19:15)
--- NOTE | 2020-06-07 19:15 | NUR ---
SUPERINTENDENT DRIVERS NOTES: RECEIVED PT A/OX1; IN BED RESTING COMFORTABLY. PATIENT NON VERBAL.PATIENT IN NO S/SX OF ACUTE DISTRESS AT THIS TIME. NO SOB NOTED. PATIENT'S BREATHING IS EVEN AND UNLABORED. PATIENT IS ON ROOM AIR; TOLERATING WELL; SATURATING AT LEVEL OF 96% O2 .PATIENT ON TELE MONITORING READING SINUS RHYTHM HR IS @64 BPM AT TIME OF RECEIVED. PATIENT ON NPO. NOTED IV SITE ON R UA MIDLINE #18, R FA # 18 AND L HAND # 20; ALL PATENT, INTACT AND FLUSHING WELL NO S/S OF INFECTION OR INFILTRATION; WITH IV FLUID RUNNING ORDERED. VAZQUEZ CATH IN PLACE, WITH MODERATE YELLOW COLORED URINE OUTPUT . PATIENT WITH BILATERAL SOFT WRIST RESTRAINTS IN PLACE, ASSESSED PER PROTOCOL.PATIENT WITH VT PUMP ON SAFETY MEASURES HAVE BEEN PROVIDED AND IMPLEMENTED. PATIENT BED ALARM IS ON. HEAD OF BED ELEVATED. BED IS LOCKED, IN LOWEST POSITION AND SIDE RAILS UP. CALL LIGHT WITHIN REACH OF THE PATIENT. SAFETY PRECAUTIONS IN PLACE. WILL CONTINUE TO MONITOR AND REASSESS FOR ANY CHANGES AND WILL CARRY OUT ANY ONGOING AND ACTIVE MD ORDER.
[2020-06-07] MEDS: PHENYTOIN SODIUM IV 100 MG/2ML VIAL IV SCH (21:22)
--- NOTE | 2020-06-07 22:00 | NUR ---
MEMS ENGINEER NOTES NO CHANGE IN PATIENT CONDITION AT THIS TIME PATIENT VITALS STABLE, NO SIGNS OF ACUTE RESPIRATORY DISTRESS. GROUND LAYER MADE AWARE. WILL CONTINUE TO MONITOR AND REASSESS FOR ANY CHANGES THROUGHOUT THE SHIFT.
[2020-06-08] VITALS (22 sets, daily range): BP systolic 128–150; BP diastolic 62–89
--- NOTE | 2020-06-08 02:00 | NUR ---
MINE TECHNICIAN NOTES NO CHANGE IN PATIENT CONDITION AT THIS TIME PATIENT VITALS STABLE, NO SIGNS OF ACUTE RESPIRATORY DISTRESS. TEXTILES AND CLOTHING TEACHER MADE AWARE. WILL CONTINUE TO MONITOR AND REASSESS FOR ANY CHANGES THROUGHOUT THE SHIFT.
[2020-06-08 05:24] LABS: CALCIUM, SERUM 8.7 mg/dL (8.5-10.1); CARBON DIOXIDE 24 mmol/L (21-32); CHLORIDE 105 mmol/L (98-107); CREATININE 0.8 mg/dL (0.6-1.3); GLUCOSE 134 mg/dL (74-106); MAGNESIUM 1.9 mg/dL (1.8-2.4); PHOSPHORUS 1.4 mg/dL (2.5-4.9); POTASSIUM 3.4 mmol/L (3.5-5.1); SODIUM SERUM 141 mmol/L (136-145); UREA NITROGEN, BLOOD 11 mg/dL (7-18)
[2020-06-08 05:41] LABS: BASOPHILS % (AUTO) 0.6 % (0.0-2.0); EOSINOPHILS % (AUTO) 2.2 % (0.0-6.0); HEMATOCRIT 37 % (39-51); HEMOGLOBIN 12.1 g/dL (13.5-17.5); LYMPHOCYTES % (AUTO) 19.3 % (20.0-44.0); MEAN CORPUSCULAR HGB CONC 33 g/dl (31.0-36.0); MEAN CORPUSCULAR VOLUME 96 fL (80-96); MONOCYTES # (AUTO) 0.5 /CMM (0.1-1.30); MONOCYTES % (AUTO) 10.3 % (2.0-12.0); NEUTROPHILS # (AUTO) 3.6 /CMM (1.8-8.9); NEUTROPHILS % (AUTO) 67.6 % (43.0-81.0); PLATELET COUNT (AUTO) 207 /CMM (150-450); RED BLOOD CELL COUNT(AUTO) 3.82 MIL/uL (4.5-6.0); WHITE BLOOD COUNT (AUTO) 5.3 K/uL (4.3-11.0)
--- NOTE | 2020-06-08 07:00 | NUR ---
FILM AND VIDEO GRAPHICS DESIGNER CLOSING NOTES PATIENT REMAINS IN ROOM IN NO SIGNS OF RESPIRATORY DISTRESS. PATIENT SATURATING 99% OF 02. VITAL SIGNS WNL. IV LINE MAINTAINED, INTACT, PATENT AND FLUSHING, NO SITE REDNESS OR INFILTRATION. SAFETY PRECAUTIONS IN PLACE AND COMFORT MEASURES RENDERED. BED IN LOWEST POSITION, CALL LIGHT WITHIN REACH, BREAKS ON, SIDE RAILS UP. ALL NEEDS ATTENDED, MEDICATIONS GIVEN SCHEDULED AND ORDERED ; SHIFT ASSESSMENT/BEDBATH/SKIN CARE DONE. PATIENT KEPT CLEAN AND DRY. WILL ENDORSE TO INCOMING SHIFT FOR JANET WITH ALL PERTINENT INFO REGARDING PATIENT STATUS.
--- NOTE | 2020-06-08 07:30 | NUR ---
RN OPENING NOTES PATIENT IN BED, A/OX1, ON ROOM AIR, SPO2 IS 94%, VAZQUEZ CATH IN PLACE DRAINING MARTINEZ URINE BY GRAVITY, DENIES PAIN OR DISCOMFORT, TELE-MONITOR READINGS IS SR, 97. SEIZURE PRECAUTIONS IN PLACE, BED RAIL IS PADDED, BED IS LOCKED, IN LOWEST POSITION, HOB ELEVATED, IV LINE ON R FA AND L WRIST NOTED, MIDLINE ON R UA NOTED, ALL PATENT IN INTACT, WILL CONT TO MONITOR
[2020-06-08] MEDS ORDERED: LACOSAMIDE 100 MG in IV NS 0.9% 50 ML IV SCH (08:00)
[2020-06-08] MEDS ORDERED: POTASSIUM PHOSPHATE MM 15 MMOL in IV NS 0.9% 250 ML IV SCH (08:30)
[2020-06-08] MEDS: ASPIRIN 81 MG TAB.CHEW PO SCH (08:41)
[2020-06-08] MEDS: ENOXAPARIN SODIUM 40 MG/0.4 ML DISP.SYRIN SQ SCH (08:41)
[2020-06-08] MEDS: POTASSIUM PHOSPHATE MM 7.5 MMOL in IV NS 0.9% 100 ML IV SCH ×2 (09:14→17:55)
[2020-06-08] MEDS: LEVETIRACETAM (500MG) 1,500 MG in IV NS 0.9% 100 ML IV SCH ×2 (09:14→21:11)
[2020-06-08] MEDS: PHENYTOIN SODIUM IV 100 MG/2ML VIAL IV SCH ×2 (09:15→21:11)
--- NOTE | 2020-06-08 09:38 | NUR ---
vomited x 2 after swallow eval trail
--- NOTE | 2020-06-08 11:28 | NUR ---
TRANSFERRED TO RADIOLOGY DEPARTMENT FOR LUMBAR PUNCTURE, TOLERATED WELL, CURRENTLY IN PRONE POSITION, WITH NC @ 2 L, SPO2 IS 91%, CONT TO MONITOR
--- NOTE | 2020-06-08 12:21 | NUR ---
Patient is back from procedure, tolerated well, connected to monitors, VS is stable, cont to monitor
[2020-06-08] MEDS: IV D5/0.45 NACL 1,000 ML IV SCH (12:31)
[2020-06-08 14:29] LABS: CSF GLUCOSE 82 mg/dL (40-70); CSF PROTEIN 37.7 mg/dL (15-45)
--- NOTE | 2020-06-08 14:44 | NUR ---
Transfere to TEJA room 104, by myself, will cont to monitor
--- NOTE | 2020-06-08 15:00 | NUR ---
L WRIST IV DISLODGED, REMOVED, APPLIED DRESSING, CONT TO MONITOR
--- NOTE | 2020-06-08 17:25 | NUR ---
patient is back from CT scan,tolerated well, tolerated well, on NC @ 3L, will cont to monitor
--- NOTE | 2020-06-08 18:54 | NUR ---
RN CLOSING NOTES PATIENT REMAINS IN BED, RESTRAINS ON, TOLERATING WELL, PROVIDING PASSIVE RANGE OF MOTION AND OFF LOADING ACCORDING TO PROTOCOL, ON NC @ 3L, TOLERATING WELL, TELE MONITOR: SR, 74,COMFORT NEEDS ATTENDED, NPO STATUS MAINTAINED, IV LINES INTACT,SAFETY MEASURES IN PLACE, SEIZURE PRECAUTION MAINTAINED, HOB ELEVATED,BED ALARM ON, WILL ENDORSE TO PM SHIFT RN FOR JANET
--- NOTE | 2020-06-08 19:20 | NUR ---
RN NOTES: RECEIVED PT A/OX1; IN BED RESTING COMFORTABLY. PATIENT NON VERBAL.PATIENT IN NO S/SX OF ACUTE DISTRESS AT THIS TIME. NO SOB NOTED. PATIENT'S BREATHING IS EVEN AND UNLABORED. PATIENT IS ON ROOM AIR; TOLERATING WELL; SATURATING AT LEVEL OF 94% O2 .PATIENT ON TELE MONITORING READING SINUS RHYTHM HR IS @64 BPM AT TIME OF RECEIVED. PATIENT ON NPO. NOTED IV SITE ON R UA MIDLINE #18, R FA # 18; ALL PATENT, INTACT AND FLUSHING WELL NO S/S OF INFECTION OR INFILTRATION; WITH IV FLUID RUNNING ORDERED. VAZQUEZ CATH IN PLACE, WITH MODERATE YELLOW COLORED URINE OUTPUT . PATIENT WITH BILATERAL SOFT WRIST RESTRAINTS IN PLACE, ASSESSED PER PROTOCOL. PATIENT WITH VT PUMP ON SAFETY MEASURES HAVE BEEN PROVIDED AND IMPLEMENTED. PATIENT BED ALARM IS ON. HEAD OF BED ELEVATED. BED IS LOCKED, IN LOWEST POSITION AND SIDE RAILS UP. CALL LIGHT WITHIN REACH OF THE PATIENT. SAFETY PRECAUTIONS IN PLACE. WILL CONTINUE TO MONITOR AND REASSESS FOR ANY CHANGES AND WILL CARRY OUT ANY ONGOING AND ACTIVE MD ORDER.
[2020-06-08] MEDS: LACOSAMIDE 200 MG in IV NS 0.9% 50 ML IV SCH (20:02)
--- NOTE | 2020-06-08 22:00 | NUR ---
RN NOTES NO CHANGE IN PATIENT CONDITION AT THIS TIME PATIENT VITALS STABLE, NO SIGNS OF ACUTE RESPIRATORY DISTRESS. GIS ADMINISTRATOR MADE AWARE. WILL CONTINUE TO MONITOR AND REASSESS FOR ANY CHANGES THROUGHOUT THE SHIFT.
[2020-06-09] VITALS: BP 148/87
[2020-06-09] MEDS: IV D5/0.45 NACL 1,000 ML IV SCH (01:43)
--- NOTE | 2020-06-09 03:00 | NUR ---
RN NOTES NO CHANGE IN PATIENT CONDITION AT THIS TIME PATIENT VITALS STABLE, NO SIGNS OF ACUTE RESPIRATORY DISTRESS. MANAGER ASSET MANAGEMENT MADE AWARE. WILL CONTINUE TO MONITOR AND REASSESS FOR ANY CHANGES THROUGHOUT THE SHIFT.
[2020-06-09] MEDS: IV NS 0.9% 1,000 ML IV PRN (03:24)
[2020-06-09 04:00] VITALS: BP 150/89
[2020-06-09 06:02] LABS: BASOPHILS # (AUTO) 0.1 /CMM (0.0-0.2); BASOPHILS % (AUTO) 1.1 % (0.0-2.0); HEMATOCRIT 38 % (39-51); HEMOGLOBIN 12.5 g/dL (13.5-17.5); LYMPHOCYTES # (AUTO) 0.8 /CMM (0.8-4.8); LYMPHOCYTES % (AUTO) 16.4 % (20.0-44.0); MEAN CORPUSCULAR HGB CONC 33 g/dl (31.0-36.0); MEAN CORPUSCULAR VOLUME 95 fL (80-96); MONOCYTES # (AUTO) 0.6 /CMM (0.1-1.30); MONOCYTES % (AUTO) 11.5 % (2.0-12.0); NEUTROPHILS # (AUTO) 3.4 /CMM (1.8-8.9); PLATELET COUNT (AUTO) 198 /CMM (150-450); RED BLOOD CELL COUNT(AUTO) 3.98 MIL/uL (4.5-6.0)
--- NOTE | 2020-06-09 06:46 | NUR ---
RN CLOSING NOTES PATIENT REMAINS IN ROOM IN NO SIGNS OF RESPIRATORY DISTRESS. PATIENT SATURATING 965% OF 02. VITAL SIGNS WNL. IV LINE MAINTAINED, INTACT, PATENT AND FLUSHING, NO SITE REDNESS OR INFILTRATION. SAFETY PRECAUTIONS IN PLACE AND COMFORT MEASURES RENDERED. BED IN LOWEST POSITION, CALL LIGHT WITHIN REACH, BREAKS ON, SIDE RAILS UP. ALL NEEDS ATTENDED, MEDICATIONS GIVEN SCHEDULED AND ORDERED ; SHIFT ASSESSMENT/BEDBATH/SKIN CARE DONE. PATIENT KEPT CLEAN AND DRY. WILL ENDORSE TO INCOMING SHIFT FOR JANET WITH ALL PERTINENT INFO REGARDING PATIENT STATUS.
[2020-06-09 07:00] LABS: CALCIUM, SERUM 8.2 mg/dL (8.5-10.1); CREATININE 0.7 mg/dL (0.6-1.3); MAGNESIUM 1.6 mg/dL (1.8-2.4); PHOSPHORUS 1.9 mg/dL (2.5-4.9)
--- NOTE | 2020-06-09 07:30 | NUR ---
RN Opening note Received patient in bed sleeping, AO x 1-2, able to responds all stimuli. Does no appears pain or distress, skin is warm to touch keep clean/dry, intact midline and good patent with flash. Respiratory even and unlabored on room air, no sob or respiratory distress observed. Kept locked bed with elevated HOB for ensure airway and aspiration precaution and lowest position for safety. Call light within reach, will continue to monitor.
--- NOTE | 2020-06-09 07:30 | NUR ---
RN Opening note Received patient in bed sleeping, AO x 1-2, able to responds all stimuli. Does no appears pain or distress, skin is warm to touch keep clean/dry, intact midline and good patent with flash. Respiratory even and unlabored with oxygen at 4LPM via n/c, no sob or respiratory distress observed. Kept locked bed with elevated HOB for ensure airway and aspiration precaution and lowest position for safety. Call light within reach, will continue to monitor. Addendum: 06/09/20 at 1115 by ZARI NICOLE RN Error
[2020-06-09 07:44] LABS: POTASSIUM 2.7 mmol/L (3.5-5.1)
--- NOTE | 2020-06-09 08:20 | NUR ---
Patient noted potassium level 2.7 in this morning, Dr. Cardona made aware and received new order potassium.
--- NOTE | 2020-06-09 08:29 | NUR ---
Received order EEG and MRI Brain no contrast stat by Dr Castillo. Noted and carried out.
[2020-06-09] MEDS ORDERED: Potassium Chloride 20 MEQ in IV D5/0.45 NACL 1,000 ML IV PRN (08:30)
--- NOTE | 2020-06-09 08:30 | NUR ---
Patient received MRI brain without contrast, obtained informations and sign by Brother/Trevor Taylor over the phone.
[2020-06-09] MEDS ORDERED: POTASSIUM CHLORIDE 20 MEQ TAB.PRT.SR PO SCH (09:00)
[2020-06-09] MEDS: PHENYTOIN SODIUM IV 100 MG/2ML VIAL IV SCH ×2 (09:00→21:10)
[2020-06-09] MEDS: ASPIRIN 81 MG TAB.CHEW PO SCH (09:00)
[2020-06-09] MEDS: ENOXAPARIN SODIUM 40 MG/0.4 ML DISP.SYRIN SQ SCH (09:03)
[2020-06-09] MEDS: LACOSAMIDE 200 MG in IV NS 0.9% 50 ML IV SCH ×2 (09:13→19:52)
[2020-06-09] MEDS: LEVETIRACETAM (500MG) 1,500 MG in IV NS 0.9% 100 ML IV SCH ×2 (09:13→21:09)
[2020-06-09] MEDS: Magnesium 1GM/D5W 100ML PREMIX 100 ML IV SCH ×2 (10:41→11:42)
[2020-06-09] MEDS: POTASSIUM CL. PREMIX PERIPHER. 50 ML IV SCH ×5 (10:41→15:04)
--- NOTE | 2020-06-09 13:00 | NUR ---
Patient noted pulled out bansal Md alissa made aware and OK to stop bansal. Patient no noted active bleeding, will continue to monitor for safety.
--- NOTE | 2020-06-09 13:50 | NUR ---
RECEIVED CALL FROM DR CARDONA CHIEF OF SAFETY AND PROTECTION IN [place]. WANTS TO HELP GIVE HISTORY FOR THE PATIENT. PHONE# [phone]. INFORMED DR. HAWLEY.
[2020-06-09] MEDS ORDERED: POTASSIUM PHOSPHATE MM 15 MMOL in IV NS 0.9% 250 ML IV SCH (14:00)
[2020-06-09] MEDS: LORAZEPAM INJ 2 MG/ML VIAL IV PRN (14:12)
--- NOTE | 2020-06-09 14:12 | NUR ---
PT GIVEN ATIVAN ORDERED PRN PT WAS BEING TAKEN TO MRI VIA BED WITH VOCATIONAL COORDINATOR. PT REMAINED UNCOOPERATIVE AND RESCHEDULED MRI TO TOMORROW. WILL ENDORSE TO PT'S NURSE. SPOKE WITH VOCATIONAL COORDINATOR AND CONFIRMED PLAN.
--- NOTE | 2020-06-09 15:00 | NUR ---
Spoke [facility] Transfer team/Brittani Bell at [phone] and given answer questions, she said will give information to Doctor and will call back.
--- NOTE | 2020-06-09 16:00 | NUR ---
Patient has MRI brain order and transporter picked up patient but start agitated could not done MRI today, will try tomorrow. Informed Dr. Castillo regarding above.
--- NOTE | 2020-06-09 18:25 | NUR ---
RN Closing Note Patient in bed resting comfortably, does no appears pain or discomfort. Skin is warm to touch, keep clean/dry, intact midline line, patient pilled out rolf conway MD aware and no further new order. Respiratory even and unlabored on room. Kept locked bed with elevated HOB for ensure airway and aspiration precaution also lowest portion for safety at all times. Call light within reach, will endorse police shift commander.
--- NOTE | 2020-06-09 19:05 | NUR ---
RN NOTE RECEIVED PATIENT IN BED RESTING, WATCHING TV. PATIENT IS AWAKE, ALERT, CONFUSED, ABLE TO FOLLOW COMMANDS. ABLE TO MAKE NEEDS KNOWN IN INDONESIAN. SPEECH IS CLEAR. BREATHING IS EVEN AND UNLABORED. O2 SAT IS 93% ON ROOM AIR. IV SITE ON RIGHT UPPER ARM, MIDLINE IS CLEAN, DRY, AND PATENT. PATIENT IS ON BILATERAL SOFT WRIST RESTRAINTS. PER AM SHIFT REPORT, PATIENT PULLED OUT VAZQUEZ CATHETER. PATIENT IS INCONTINENT. NOTED PATIENT WITH MODERATE HEMATURIA. SKIN IS WARM TO TOUCH, DRY, AND INTACT. IN NO APPARENT DISTRESS NOTED. NO COMPLAINTS OF ANY PAIN AT THIS TIME. BED IS LOWERED AND LOCKED FOR SAFETY. CALL LIGHT IS WITHIN EASY REACH. WILL CONTINUE TO MONITOR.
--- NOTE | 2020-06-09 19:13 | NUR ---
Patient has CD with discharge, endorsed stator connector. DC placed in chart.
[2020-06-09 20:00] VITALS: BP 135/77
[2020-06-10] VITALS: BP 137/87
[2020-06-10 04:00] VITALS: BP 148/84
[2020-06-10 06:39] LABS: BASOPHILS % (AUTO) 0.3 % (0.0-2.0); EOSINOPHILS % (AUTO) 3.5 % (0.0-6.0); HEMATOCRIT 39 % (39-51); HEMOGLOBIN 12.9 g/dL (13.5-17.5); LYMPHOCYTES # (AUTO) 0.9 /CMM (0.8-4.8); LYMPHOCYTES % (AUTO) 16.4 % (20.0-44.0); MEAN CORPUSCULAR HGB CONC 33 g/dl (31.0-36.0); MEAN CORPUSCULAR VOLUME 95 fL (80-96); MONOCYTES # (AUTO) 0.5 /CMM (0.1-1.30); MONOCYTES % (AUTO) 9.1 % (2.0-12.0); NEUTROPHILS % (AUTO) 70.7 % (43.0-81.0); PLATELET COUNT (AUTO) 210 /CMM (150-450); RED BLOOD CELL COUNT(AUTO) 4.12 MIL/uL (4.5-6.0); WHITE BLOOD COUNT (AUTO) 5.7 K/uL (4.3-11.0)
[2020-06-10 06:54] LABS: ALBUMIN 2.6 g/dL (3.4-5.0); BILIRUBIN,TOTAL 0.5 mg/dL (0.2-1.0); CALCIUM, SERUM 8.7 mg/dL (8.5-10.1); CREATININE 0.9 mg/dL (0.6-1.3); PHOSPHORUS 1.9 mg/dL (2.5-4.9); TOTAL PROTEIN, SERUM 7.1 g/dL (6.4-8.2)
--- NOTE | 2020-06-10 07:02 | NUR ---
RN NOTE PATIENT REMAINED STABLE THROUGHOUT THE NIGHT. NO SIGNIFICANT CHANGES NOTED. PATIENT IS KEPT CLEAN, DRY, AND COMFORTABLE. KEPT ON BILATERAL SOFT WRIST RESTRAINTS FOR TRYING TO PULL OUT LINES. REPOSITIONED Q2H. PLACED PATIENT ON 2 LITERS O2 VIA NC FOR O2 SAT 90-92%. WILL ENDORSE TO AM SHIFT RN FOR CONTINUATION OF CARE.
--- NOTE | 2020-06-10 07:20 | NUR ---
RN OPENING NOTE Received patient asleep in bed appears calm and relaxed no signs of distress. On NC 2L tolerating well. O2 sat 95%. Patient is AO X1 non verbal and responsive to tactile stimuli. Will move arms when touched. Tele monitor reading SR 90s. Patient tries to pull tele box numerous times. Has YAHAIRA Midline flushes well. Patient is awaiting transfer to [facility]. Safety measures maintained. Call light within reach. Will cont to monitor.
[2020-06-10 08:00] VITALS: BP 151/84
[2020-06-10] MEDS: LACOSAMIDE 200 MG in IV NS 0.9% 50 ML IV SCH ×2 (08:22→19:29)
--- NOTE | 2020-06-10 08:30 | NUR ---
TRIED TO FEE PATIENT WITH PUREE DIET BUT PATIENT IS COUGHING A LOT. POSTPONED FEEDING AND INFORMED DR HAWLEY AWAITING ORDERS.
[2020-06-10] MEDS: ENOXAPARIN SODIUM 40 MG/0.4 ML DISP.SYRIN SQ SCH (08:59)
[2020-06-10] MEDS: ASPIRIN 81 MG TAB.CHEW PO SCH (08:59)
[2020-06-10] MEDS: PHENYTOIN SODIUM IV 100 MG/2ML VIAL IV SCH ×2 (09:03→20:44)
[2020-06-10] MEDS: LEVETIRACETAM (500MG) 1,500 MG in IV NS 0.9% 100 ML IV SCH ×2 (09:03→20:42)
--- NOTE | 2020-06-10 10:30 | NUR ---
REQUESTED FOR DR PRIEST TO CALL DR. SANKET AREVALO BROTHER OF PATIENT REGARDING PATIENT'S CONDITION. PROVIDED DR PRIEST HIS PHONE NUMBER. [phone]
[2020-06-10] MEDS: Potassium Chloride 10 MEQ in IV D5/0.45 NACL 1,000 ML IV SCH ×2 (10:36→23:35)
--- NOTE | 2020-06-10 10:58 | NUR ---
PER SANKET (BROTHER) HE HAS NOT RECEIVED A CALL FROM DR PRIEST. INSISTED ON GETTING A CALL.
[2020-06-10] MEDS: POTASSIUM PHOSPHATE MM 7.5 MMOL in IV NS 0.9% 100 ML IV SCH ×2 (11:06→14:21)
[2020-06-10] MEDS: LORAZEPAM INJ 2 MG/ML VIAL IV PRN (11:55)
[2020-06-10 12:00] VITALS: BP 157/77
--- NOTE | 2020-06-10 12:10 | NUR ---
DR PRIEST CALLED TO CANCEL MRI. WILL HAVE TO DO IT IN [facility]. INFORMED MRI TEAM.
--- NOTE | 2020-06-10 14:05 | NUR ---
SEEN AND EXAMINED BY DR PRIEST. FOLLOWED UP WITH SECONDARY TEACHER ABOUT TRANSFER.
[2020-06-10 16:00] VITALS: BP 120/75
--- NOTE | 2020-06-10 16:30 | NUR ---
REPORT GIVEN TO PENNY Sales OF [facility] TRANSFER TEAM. [phone] EXT [phone]. HER INSTRUCTIONS WAS TO CALL THEM ONCE AMBULANCE IS PHYSICALLY HERE TO INTERNAL CONTROL CONSULTANT PATIENT AND TO GET MOST RECENT VITAL SIGNS AND PATIENT MUST HAVE A FACE MASK ON.
--- NOTE | 2020-06-10 16:59 | NUR ---
PHENYTOIN NOT DRAWN BEC INSTRUMENT WAS BROKEN. PER HEAVY DUTY DIESEL MECHANIC WILL FIX IT.
--- NOTE | 2020-06-10 17:25 | NUR ---
SPOKE WITH [facility] WANTED K REPEATED NEED TO BE 3.5 ,ALSO MAGNESIUM,,PHOSPHOROUS.
--- NOTE | 2020-06-10 17:30 | NUR ---
PER MD WILL REPEAT K AND PHOSPHOROUS LEVEL BUT MAGNESIUM IS NORMAL DOESNT NEED TO BE REPEATED.JUAN FROM [facility] NOTIFIED [phone] EXT 2.
--- NOTE | 2020-06-10 18:54 | NUR ---
RN CLOSING NOTE Patient in bed calm and relaxed. On NC 2L tolerating well no signs of distress. Patient is on ice pack for low grade fever. Lab draw done for potassium level. No signs of pain or discomfort. All due meds given. Patient's Potassium needs to be at least 3.5 before transfer. Call [facility] once bed is available in [facility]. Call [facility] Tiffani P. [phone] ext [phone] when ambulance is physically here. Provide most recent vital siigns. Call Rozina (daughter) once there is an ETA for ambulance here in hospital so she can meet with patient outside.
--- NOTE | 2020-06-10 19:20 | NUR ---
RECEIVED PT ON BED ASLEEP ON O2 2L VIA NC SPO2 96%, ON TELE MONITOR READS SINUS RHYTHM 60'S PT HAVE BILATERAL SOFT RESTRAINT WILL CHECKED CIRCULATION REGULARLY, HAVE YAHAIRA MIDLINE WITH ONGOING D5 1/2NS +10 MEQ KCL @ 75ML/HR INFUSING WELL , PER AM SHIFT NURSE PT WAS FAILED SWALLOW TEST WHEN THEY ARE FEEDING HIM SO THEY PUT HIM ON NPO STATUS RIGHT NOW, WAITING K+ LVL AND POSSIBLE TRANSFER TO [facility] SAFETY MEASURE MAINTAINED BED ON LOWEST POSITION AND LOCKED SIDE RAILS UP X2 WILL CONT TO MONITOR
[2020-06-10 20:00] VITALS: BP 135/82
--- NOTE | 2020-06-10 21:04 | NUR ---
INVESTIGATIONS CONSULTANT NOTE LETICIA ENVIRONMENTAL FIELD TECHNICIAN INFORMED LATEST RESULT OF K 3.2 AND PHOS 2.2. PER LETICIA HE WILL INFORMED THE MD AND CALL US BACK.
--- NOTE | 2020-06-10 21:36 | NUR ---
CORDAGE SALES REPRESENTATIVE NOTE LETICIA FROM [facility] CALLED BACK AND INFORMED ME THAT [facility] MD WON'T ACCEPT THE PT UNTIL K ABOVE 3.4 AND PHOS ABOVE 2.3. NURSE SKIP INFORMED TO FOLLOW UP WITH THE MD. AND LABS NEED TO BE REPEATED.
[2020-06-10] MEDS ORDERED: POTASSIUM PHOSPHATE MM 15 MMOL in IV NS 0.9% 250 ML IV SCH (22:00)
--- NOTE | 2020-06-10 22:08 | NUR ---
CHARGE NURSE TOLD ME THAT [facility] CAN NOT ACCEPT PT WITH THE K+ LVL OF 3.2 AND PHOS OF 2.2, I CALLED DR. PRIEST AND INFORMED HIM ABOUT THAT AND I ALSO CALL THE ONCTRENT [facility]A ASSEMBLY ROOM SUPERVISOR AND INFORMED HIM ABOUT THE SITUATION HE MADE AN ORDER FOR POTASSIUM PHOSPATE IV NOTED AND CARRIED OUT, I ALSO CALLED THE DAUGHTER OF THE PATIENT MS LOPEZ AND INFORM HER ABOUT THE CANCEL TRANSFER OF HER FATHER AND I ALSO CALL THE BROTHER DR. SANKET AREVALO AND INFORMED HIM, WILL CONT TO MONITOR THE PT
--- NOTE | 2020-06-10 22:31 | NUR ---
PHARMACY CALLED AND THEY SAID THEY CANNOT COME AND MIX THE POTASSIUM PHOSPHATE IV, K+ LVL IS 3.2 AND PHOS IS 2.2 NOT CRITICALLY LOW, MADE AWARE MANAGER EXPORT AND CHARGE NURSE ALSO AWARE WILL CONT TO MONITOR THE PT
[2020-06-11] VITALS (7 sets, daily range): BP systolic 123–165; BP diastolic 65–82
[2020-06-11] MEDS: POTASSIUM PHOSPHATE MM 7.5 MMOL in IV NS 0.9% 100 ML IV SCH ×2 (06:08→10:31)
--- NOTE | 2020-06-11 06:19 | NUR ---
I INFORMED DAUGHTER MS PRECIADO ABOUT THE DELAY OF THE TRANSFER OF HER FATHER BECAUSE WE NEED TO ADMINISTER THE POTASSIUM PHOSPATE IV ORDER AND GET THE POTASSIUM >= TO 3.5 AND PHOSPHORUS >=2.3 LVL BEFORE WE CAN TRANSFER THE PT TO [facility], PT DAUGHTER UNDERSTAND, I WILL ENDORSE TO AM NURSE TO UPDATE HER ONCE THE PT ALREADY HAVE A ETA FOR TRANSFER TO [facility]
[2020-06-11] MEDS ORDERED: POTASSIUM PHOSPHATE MM 15 MMOL in IV NS 0.9% 250 ML IV SCH (07:30)
--- NOTE | 2020-06-11 08:00 | NUR ---
MANAGER SHOP NOTES RECEIVED PT IN BED. ALERT, OPEN EYES BUT STILL WITH SOME CONFUSION. 2LPM NC. TELEMONITOR SR HR 65. PT IS NPO, ON IV FLUIDS ORDERED. CONTINUE TO ADMIN K PHOS ORDERED. PT ON SOFT RESTRAINTS ORDERED FOR PT SAFETY. SCD PUMPS BILATERAL. RT AT BEDSIDE, ORA SUCTION DONE WITH MODERATE AMOUNT OF YELLOW SECRETION. PT SAFETY PRECAUTIONS IN PLACE, BED LOCKED AND LOWEST POSITION, SIDE RAILS X2 UP, SZ PRECAUTION IN PLACE, CALL SO WITHIN REACH. WILL CONTINUE TO MONITOR.
[2020-06-11] MEDS: LACOSAMIDE 200 MG in IV NS 0.9% 50 ML IV SCH ×2 (08:16→20:28)
[2020-06-11] MEDS: ASPIRIN 81 MG TAB.CHEW PO SCH (08:48)
[2020-06-11] MEDS: ENOXAPARIN SODIUM 40 MG/0.4 ML DISP.SYRIN SQ SCH (08:50)
[2020-06-11] MEDS: PHENYTOIN SODIUM IV 100 MG/2ML VIAL IV SCH ×2 (09:35→21:40)
[2020-06-11] MEDS: LEVETIRACETAM (500MG) 1,500 MG in IV NS 0.9% 100 ML IV SCH ×2 (09:39→21:40)
[2020-06-11 09:59] LABS: BASOPHILS % (AUTO) 0.9 % (0.0-2.0); EOSINOPHILS % (AUTO) 2.8 % (0.0-6.0); HEMATOCRIT 38 % (39-51); HEMOGLOBIN 12.3 g/dL (13.5-17.5); LYMPHOCYTES # (AUTO) 1.1 /CMM (0.8-4.8); LYMPHOCYTES % (AUTO) 22.4 % (20.0-44.0); MEAN CORPUSCULAR HGB CONC 33 g/dl (31.0-36.0); MEAN CORPUSCULAR VOLUME 95 fL (80-96); MONOCYTES # (AUTO) 0.7 /CMM (0.1-1.30); MONOCYTES % (AUTO) 13.9 % (2.0-12.0); NEUTROPHILS # (AUTO) 2.9 /CMM (1.8-8.9); PLATELET COUNT (AUTO) 197 /CMM (150-450); RED BLOOD CELL COUNT(AUTO) 3.95 MIL/uL (4.5-6.0); WHITE BLOOD COUNT (AUTO) 4.8 K/uL (4.3-11.0)
[2020-06-11 10:12] LABS: CALCIUM, SERUM 8.3 mg/dL (8.5-10.1); CREATININE 0.9 mg/dL (0.6-1.3); MAGNESIUM 1.8 mg/dL (1.8-2.4); PHOSPHORUS 2.6 mg/dL (2.5-4.9); POTASSIUM 3.5 mmol/L (3.5-5.1)
--- NOTE | 2020-06-11 11:00 | NUR ---
telecommunications support note oral suction done all needs attended will cont to monitor
[2020-06-11] MEDS: Potassium Chloride 10 MEQ in IV D5/0.45 NACL 1,000 ML IV SCH (12:54)
[2020-06-11 15:24] LABS: CALCIUM, SERUM 8.2 mg/dL (8.5-10.1); CREATININE 0.8 mg/dL (0.6-1.3); POTASSIUM 3.1 mmol/L (3.5-5.1)
--- NOTE | 2020-06-11 15:31 | NUR ---
telephone exchange operator note ordered bmp for k and phos level will f\u
--- NOTE | 2020-06-11 15:37 | NUR ---
FOLLOW UP WITH [facility] STILL PENDING BED [facility].
[2020-06-11 16:37] LABS: CALCIUM, SERUM 8.4 mg/dL (8.5-10.1); CREATININE 0.8 mg/dL (0.6-1.3); PHOSPHORUS 2.6 mg/dL (2.5-4.9); POTASSIUM 3.3 mmol/L (3.5-5.1)
--- NOTE | 2020-06-11 17:18 | NUR ---
NURSING CENTER TUTOR NOTE CALLED DR HAWLEY EXPLAINING PT IS BLEEDING FROM PENIS. ASKED IF OK TO CONTINUE WITH LOVENOX. PER DR HAWLEY, YES IT OK TO CONTINUE WITH LOVENOX ORDERED Addendum: 06/11/20 at 1724 by RE LI RN HGB 12.3, HCT 38, PLT 197
[2020-06-11] MEDS: POTASSIUM CL. PREMIX PERIPHER. 50 ML IV SCH ×5 (17:59→22:51)
--- NOTE | 2020-06-11 18:49 | NUR ---
[facility] RN CLOSING NOTE PT SEMI FOWLERS IN BED. PT IS CONFUSED, A/OX1. PT ON NC 2LPM, BREATHING UNLABORED. SUCTIONING WARRANTED DURING SHIFT, MONITOR FOR ASPIRATION PRECAUTION. PT ALSO ON SZ PRECAUTIONS. PT IV POTASSIUM CHLORIDE RUNNING PER ORDERS DUE TO K OF 3.3 DRAWN AT 1630. TO CALL [facility] ONCE [facility] HAS A BED READY. PT SAFETY PRECAUTIONS IN PLACE, CALL SO WITHIN REACH, BED LOCKED AND IN LOWEST POSITION. SIDE RAILS UP X4. CONTINUE TO MONITOR PT AND REDRAW K LEVELS DURING LITERATURE TEACHER.
--- NOTE | 2020-06-11 20:00 | NUR ---
telesales manager opening note received pt in bed. a/ox1. Breathing even and unlabored with no sob or acute distress noted on 2 L of oxygen. Denies any pain or discomfort. no facial grimacing noted. IV site patent and intact. iv fluids infusing well. Kept clean and dry. Srx2 up. bed in lowest position. All needs rendered. Will continue to monitor.
[2020-06-12] VITALS (7 sets, daily range): BP systolic 97–146; BP diastolic 46–83
[2020-06-12] MEDS: Potassium Chloride 10 MEQ in IV D5/0.45 NACL 1,000 ML IV SCH ×2 (02:24→15:24)
[2020-06-12 05:57] LABS: BASOPHILS # (AUTO) 0.1 /CMM (0.0-0.2); BASOPHILS % (AUTO) 1.5 % (0.0-2.0); EOSINOPHILS % (AUTO) 5.2 % (0.0-6.0); HEMATOCRIT 37 % (39-51); HEMOGLOBIN 12.3 g/dL (13.5-17.5); LYMPHOCYTES # (AUTO) 0.8 /CMM (0.8-4.8); LYMPHOCYTES % (AUTO) 19.1 % (20.0-44.0); MEAN CORPUSCULAR HGB CONC 33 g/dl (31.0-36.0); MEAN CORPUSCULAR VOLUME 95 fL (80-96); MONOCYTES # (AUTO) 0.4 /CMM (0.1-1.30); MONOCYTES % (AUTO) 10.1 % (2.0-12.0); NEUTROPHILS # (AUTO) 2.6 /CMM (1.8-8.9); NEUTROPHILS % (AUTO) 64.1 % (43.0-81.0); PLATELET COUNT (AUTO) 201 /CMM (150-450); RED BLOOD CELL COUNT(AUTO) 3.88 MIL/uL (4.5-6.0); WHITE BLOOD COUNT (AUTO) 4.1 K/uL (4.3-11.0)
[2020-06-12 06:07] LABS: CALCIUM, SERUM 8.6 mg/dL (8.5-10.1); CARBON DIOXIDE 25 mmol/L (21-32); CHLORIDE 100 mmol/L (98-107); CREATININE 0.8 mg/dL (0.6-1.3); GLUCOSE 128 mg/dL (74-106); MAGNESIUM 1.8 mg/dL (1.8-2.4); PHOSPHORUS 2.2 mg/dL (2.5-4.9); POTASSIUM 3.3 mmol/L (3.5-5.1); SODIUM SERUM 135 mmol/L (136-145); UREA NITROGEN, BLOOD 8 mg/dL (7-18)
--- NOTE | 2020-06-12 06:55 | NUR ---
telephone answering service operator note Pt in bed, awake and restless. Breathing even and unlabored on 2L of 02 via nc with no sob or acute distress noted. Denies any pain or discomfort. Right upper arm midline patent and intact. IV fluids infusing well. Kept clean and dry. Srx2 up. Bed in lowest position. All needs rendered. Will endorse to AM nurse for continuity of care.
--- NOTE | 2020-06-12 07:30 | NUR ---
RN OPENING NOTES Patient in bed, A/Ox1, on NC at 2L, tolerating well, SPO2 is 99%, no SOB noted, no resp distress, denies pain or discomfort, Tele monitor readings is SR 95-97, able to perform active range of motion, seizure precaution in place, R UA midline patent and intact, call light in reach, bed is locked, in lowest position, will cont to monitor
[2020-06-12] MEDS: LACOSAMIDE 200 MG in IV NS 0.9% 50 ML IV SCH ×2 (07:43→20:37)
[2020-06-12] MEDS: ASPIRIN 81 MG TAB.CHEW PO SCH (09:00)
--- NOTE | 2020-06-12 09:00 | NUR ---
Received call fro [facility], waiting for the bed for the patient per Harsha
[2020-06-12] MEDS: LEVETIRACETAM (500MG) 1,500 MG in IV NS 0.9% 100 ML IV SCH ×2 (09:14→21:50)
[2020-06-12] MEDS: PHENYTOIN SODIUM IV 100 MG/2ML VIAL IV SCH ×2 (09:15→21:50)
[2020-06-12] MEDS: ENOXAPARIN SODIUM 40 MG/0.4 ML DISP.SYRIN SQ SCH (09:32)
--- NOTE | 2020-06-12 10:00 | NUR ---
Patient's brother and daughter called, initiate conversation x 2
[2020-06-12] MEDS: POTASSIUM CL. PREMIX PERIPHER. 50 ML IV SCH ×2 (10:32→11:39)
--- NOTE | 2020-06-12 10:40 | NUR ---
PUREED DIET ORDER NOTED, WILL PROVIDE LUNCH WITH ASSISTED FEEDING
--- NOTE | 2020-06-12 13:00 | NUR ---
TOLERATED LUNCH (PUREED FOOD) WELL, SWALLOW WELL, NO CHOKING, NO ASPIRATION PRESENT , DRINKS FLUIDS WITHOUT DIFFICULTIES WELL
[2020-06-12] MEDS ORDERED: Sodium Phosphate 15 MMOL in IV NS 0.9% 245 ML IV SCH (13:30)
--- NOTE | 2020-06-12 18:53 | NUR ---
RN CLOSING NOTES REMAINS IN BED, ON ROOM AIR, SPO2 IS 98%, NO SOB OR RESP DISTRESS NOTED, CALL LIGHT IN REACH, HOB ELEVATED 4 DEGREE, BED IS LOCKED , IN LOWEST POSITION, MEDICATION GIVEN, COMFORT NEEDS ATTENDED, WILL ENDORSE CARE TO UPCOMING SHIFT
--- NOTE | 2020-06-12 20:00 | NUR ---
SENIOR CYTOTECHNOLOGIST NOTE RECEIVED PT IN BED. AWAKE A/O X2. BREATHING EVEN AND UNLABORED IN 2LPM OF 02 VIA NC. NO SOB OR ACUTE DISTRESS NOTED. DENIES ANY PAIN OR DISCOMFORT. YAHAIRA MIDLINE PATENT AND INTACT. DRESSING CLEAN AND DRY. ALL NEEDS RENDERED. KEPT CLEAN AND DRY. BED IN LOWEST POSITION. SRX2 UP. REPOSITIONED. WILL CONTINUE TO MONITOR.
--- NOTE | 2020-06-12 22:00 | NUR ---
MID LEVEL PROJECT MANAGER NOTE YAHAIRA MIDLINE NOTED WITH MILD SWELLING AND DISCOLORATION AROUND THE AREA . PT DENIES DISCOMFORT AT THE SITE. GOOD BLOOD RETURN NOTED. REINSERT IV LINE ON LFA #20. PT TOLERATED PROCEDURE WELL. GOOD BLOOD RETURN NOTED. IV FLUIDS INFUSING WELL.
[2020-06-13] VITALS: BP 146/58
[2020-06-13 04:00] VITALS: BP 146/86
[2020-06-13] MEDS: Potassium Chloride 10 MEQ in IV D5/0.45 NACL 1,000 ML IV SCH (05:37)
[2020-06-13 06:22] LABS: CALCIUM, SERUM 8.3 mg/dL (8.5-10.1); CREATININE 0.8 mg/dL (0.6-1.3); POTASSIUM 3.6 mmol/L (3.5-5.1)
--- NOTE | 2020-06-13 06:36 | NUR ---
public safety telecommunicator note PT IN BED. ASLEEP BUT EASILY AROUSABLE. BREATHING EVEN AND UNLABORED IN 2LPM OF 02 VIA NC. NO SOB OR ACUTE DISTRESS NOTED. NO S/S PAIN OR DISCOMFORT. YAHAIRA MIDLINE PATENT AND INTACT. DRESSING CLEAN AND DRY. LFA #20 PATENT AND INTACT. FLUIDS INFUSING WELL. ALL NEEDS RENDERED. KEPT CLEAN AND DRY. BED IN LOWEST POSITION. SRX2 UP. REPOSITIONED. WILL ENDORSE TO AM NURSE FOR CONTINUITY OF CARE
--- NOTE | 2020-06-13 07:40 | NUR ---
RN NOTE THE PATIENT IS RECEIVED IN BED. PATIENT IS ALERT AND ORIENTED X2. DENIES PAIN. RECEIVING OXYGEN AT 2L/MIN VIA NASAL CANNULA AND DENIES SOB. RESPIRATION REGULAR AND UNLABORED. PATIENT IN NO APPARENT DISTRESS LFA G 20 PATENT AND SALINE LOCKED. YAHAIRA MIDLINE NOT FLUSHING WELL. BED LOW AND LOCKED.SIDE RAILS UP X3. CALL LIGHT WIHTIN REACH. WILL CONTINUE TO MONITOR.
[2020-06-13 08:00] VITALS: BP 154/73
[2020-06-13] MEDS: LACOSAMIDE 200 MG in IV NS 0.9% 50 ML IV SCH ×2 (09:02→21:50)
[2020-06-13] MEDS: PHENYTOIN SODIUM IV 100 MG/2ML VIAL IV SCH ×2 (09:02→21:36)
[2020-06-13] MEDS: ENOXAPARIN SODIUM 40 MG/0.4 ML DISP.SYRIN SQ SCH (09:03)
[2020-06-13] MEDS: ASPIRIN 81 MG TAB.CHEW PO SCH (09:03)
[2020-06-13] MEDS: LEVETIRACETAM (500MG) 1,500 MG in IV NS 0.9% 100 ML IV SCH ×2 (11:01→21:19)
[2020-06-13 12:00] VITALS: BP 100/57
--- NOTE | 2020-06-13 15:58 | NUR ---
CLARIFIED W/ LAB COZ ORDER FOR COVID RAPID TEST IS BEING REJECTED ,ENTERED 2X ALREADY,PER LAB WILL CHECK ON IT WILL CONTINUE TO FOLLOW UP.
[2020-06-13 16:00] VITALS: BP 134/78
--- NOTE | 2020-06-13 16:00 | NUR ---
PATIENT ON COVID ISOLATION PROTOCOL PENDING RAPID TEST.
--- NOTE | 2020-06-13 16:00 | NUR ---
RN NOTE MIDLINE NURSE INSERTED YAHAIRA MIDLINE. THE PATIENT TOLERATED IT WELL.
--- NOTE | 2020-06-13 16:13 | NUR ---
SPECIMEN FORCOVID SWAB SEND TO LAB AND ACCEPTED,AWAITS RESULT.
--- NOTE | 2020-06-13 17:48 | NUR ---
RN NOTE DR HAWLEY IS MADE AWARE OF PATIENT`S BEING POSITIVE FOR COVID RAPID. RECEIVED AN ORDER FOR PCR. NOTED AND CARRIED OUT.
--- NOTE | 2020-06-13 17:57 | NUR ---
PER CM ALFONZO LOOKING FOR COVID BED ,AWAITS ROOM ,NURSING SUP AWARE.IF NO BED BY 8PM WILL MOVE TO ROOM 202 PER CM,[facility] NURSING SUP AWARE.
--- NOTE | 2020-06-13 17:59 | NUR ---
PATIENT PLACED ON ISOLATION PRECAUTION PER PROTOCOL,PRIMARY RN AWARE.
--- NOTE | 2020-06-13 18:47 | NUR ---
RN NOTE THE PATIENT ALERT AND ORIENTED X2. DENIES PAIN. THE PATIENT IS RECEIVING OXYGEN AT 2L/MIN VIA NASAL CANNULA AND SATURATION IS AT 95%. DENIES SOB. RESPIRATION REGULAR AND UNLABORED. THE PATIENT IS IN NO APPARENT DISTRESS. YAHAIRA G 18 MIDLINE PATENT AND SALINE LOCKED. LFA G 20 PATENT AND SALINE LOCKED. BED LOW AND LOCKED. SIDE RAILS UP X3. CALL LIGHT WITHIN REACH. WILL ENDORSE TO MOVING CONSULTANT.
--- NOTE | 2020-06-13 19:52 | NUR ---
CONSTRUCTION TECHNICIAN NOTE VERIFIED WITH SANDIE FROM [facility] GATE ATTENDANT, ACCORDING TO HER NO BED AVAILABLE SUYAPA. I INFORMED SANDIE THAT PT WILL BE MOVING TO [facility] ROOM 202. NURSING VICE PRESIDENT BIOSTATISTICS ALSO INFORMED REGARDING THIS DEVELOPMENT. INFORMED NURSE BLANCAS TO TRANSFER THE PT TO ROOM 202 PER ACLS PROTOCOL.
[2020-06-13 20:35] VITALS: BP 125/75
--- NOTE | 2020-06-13 20:35 | NUR ---
PATIENT OBSERVATION ASSISTANT NOTES, REPORTED GIVEN TO MICHEAL JEREZ IN MS2 FOR CONTINUATION OF CARE, PATIENT TRANSFERRED TO [facility] 2 SECOND FLOOR ROOM 201 DUE TO PATIENT POSITIVE RAPID COVID 19, AWAITING FROM [facility] FOR BED, NO AVAILABLE BED FOR TONIGHT, SO PATIENT TRANSFERRED TO COVID UNIT WITH ALL ACLS PROTOCOL, STABLE CONDITION, ALL PRECAUTIONS TAKEN AND PATIENT WITH N95 MASK IN PLACE.
--- NOTE | 2020-06-13 20:36 | NUR ---
RN NOTES Received patient from [facility] via hospital bed accompanied by 2 staff. On O2 via NC @ 2LPM, saturating well. Pt denies any discomfort at at time. Kept on bed clean, dry and comfortable. On fall, aspiration and seizure precautions. Call light within easy reach. On tele monitor with NSR noted. Will continue to monitor accordingly.
--- NOTE | 2020-06-13 21:09 | NUR ---
RN NOTES Pt noted confused, attempting to get off bed. Unable to follow simple instructions, pulling off O2 cannula. reed repairer Md notified, pt put on bilateral soft wrist restraints, no s/sx of injury noted. PRN Ativan given as ordered. Kept HOB elevated. On fall, aspiration, and seizure precautions. Will continue to monitor accordingly.
[2020-06-14] VITALS: BP 121/62
--- NOTE | 2020-06-14 06:47 | NUR ---
RN CLOSING NOTES Pt resting on bed, no s/sx of discomfort noted. On bilateral soft wrist restraints, no s/sx of injury noted. Awaiting for placement to [facility]. On tele monitor with NSR noted.
[2020-06-14 07:08] LABS: ALBUMIN 2.3 g/dL (3.4-5.0); BILIRUBIN,TOTAL 0.2 mg/dL (0.2-1.0); CALCIUM, SERUM 8.4 mg/dL (8.5-10.1); CREATININE 0.8 mg/dL (0.6-1.3); MAGNESIUM 1.9 mg/dL (1.8-2.4); PHOSPHORUS 2.5 mg/dL (2.5-4.9); POTASSIUM 3.2 mmol/L (3.5-5.1)
[2020-06-14 07:24] LABS: BASOPHILS % (AUTO) 0.2 % (0.0-2.0); EOSINOPHILS % (AUTO) 4.3 % (0.0-6.0); HEMATOCRIT 37 % (39-51); HEMOGLOBIN 12.2 g/dL (13.5-17.5); LYMPHOCYTES # (AUTO) 1.4 /CMM (0.8-4.8); LYMPHOCYTES % (AUTO) 25.9 % (20.0-44.0); MEAN CORPUSCULAR HGB CONC 33 g/dl (31.0-36.0); MEAN CORPUSCULAR VOLUME 96 fL (80-96); MONOCYTES # (AUTO) 0.7 /CMM (0.1-1.30); MONOCYTES % (AUTO) 12.6 % (2.0-12.0); NEUTROPHILS # (AUTO) 3.2 /CMM (1.8-8.9); PLATELET COUNT (AUTO) 212 /CMM (150-450); RED BLOOD CELL COUNT(AUTO) 3.89 MIL/uL (4.5-6.0); WHITE BLOOD COUNT (AUTO) 5.6 K/uL (4.3-11.0)
[2020-06-14] MEDS: LACOSAMIDE 200 MG in IV NS 0.9% 50 ML IV SCH ×2 (07:58→20:42)
[2020-06-14 08:00] VITALS: BP 118/61
[2020-06-14 08:42] LABS: EOSINOPHILS % (MANUAL) 1 % (0-4); LYMPHOCYTES % (MANUAL) 31 % (16-48); MONOCYTES % (MANUAL) 9 % (0-11.0); NEUTROPHILS % (MANUAL) 59 (42-76)
[2020-06-14] MEDS ORDERED: POTASSIUM CHLORIDE 20 MEQ TAB.PRT.SR PO SCH (09:00)
[2020-06-14] MEDS: LEVETIRACETAM (500MG) 1,500 MG in IV NS 0.9% 100 ML IV SCH ×2 (09:29→21:06)
[2020-06-14] MEDS: ASPIRIN 81 MG TAB.CHEW PO SCH (09:31)
[2020-06-14] MEDS: ENOXAPARIN SODIUM 40 MG/0.4 ML DISP.SYRIN SQ SCH (09:32)
[2020-06-14] MEDS: PHENYTOIN SODIUM IV 100 MG/2ML VIAL IV SCH ×2 (10:53→21:57)
--- NOTE | 2020-06-14 10:53 | NUR ---
PHARMACY RESOURCE TECH NOTES RECEIVED DILANTIN FROM PHARMACY. ADMINISTERED.
[2020-06-14 16:00] VITALS: BP 118/61
--- NOTE | 2020-06-14 17:30 | NUR ---
FLATWORK WASHER NOTES RECEIVED A CALL FROM YASMINE, [ : PRESS OPTION 2 THEN OPTION 2 AGAIN ] NURSE PATIENT PLACEMENT FROM [facility] AND STATED THAT THEY ARE WORKING ON A BED FOR PATIENT AND NO NEED TO GIVE A REPORT SINCE SHE'S ALREADY UPDATING INFO.
--- NOTE | 2020-06-14 18:00 | NUR ---
ELEMENTARY ELL TEACHER NOTES PATIENT RESTING COMFORTABLY IN BED WATCHING TV. HOB ELEVATED. ALERT AND ORIENTED X2. NO S/S OF RESPIRATORY DISTRESS. NOTED ON AND OFF COUGH DURING THE DAY. PATIENT ABLE TO COUGH OUT SECRETIONS. REMAIN ON TELE MONITORING SR: 68-87. LEFT UPPER ARM MIDLINE INTACT AND PATENT. LEFT FA SL #20 INTACT AND PATENT. BED IN LOWEST POSITION, LOCKED. BED ALARM ON. CALL LIGHT WITHIN REACH. IN NO APPARENT DISTRESS.
--- NOTE | 2020-06-14 19:00 | NUR ---
TELE/RN OPENING NOTES: RECEIVED PATIENT RESTING COMFORTABLY IN BED. A/OX2. VERBALLY RESPONSIVE AND ABLE TO MAKE NEEDS KNOWN. AWAITING FOR DC VESSEL ENGINEER TO TRANSFER PT TO [facility] FOR CONTINUOUS EEG AND POSSIBLE DINING SERVICE INSPECTOR SHUNT. IV ON THE SOPHIE MIDLINE AND LFA #20G INTACT AND PATENT. ACUTE MEDICAL RESTRAINTS SOFT WRIST BILATERAL NOTED. NO S/S OF RESPIRATORY DISTRESS. NO C/O PAIN AT THIS TIME. PER PT "I FEEL GOOD. MUCH BETTER THAN BEFORE". ON TELE MONITORING SR: 70S. SAFETY MEASURES IN PLACE. BED IN LOWEST POSITION, LOCKED. BED ALARM ON, SR UP X2. CALL LIGHT WITHIN REACH. WILL CONTINUE TO MONITOR.
--- NOTE | 2020-06-14 20:00 | NUR ---
TELE/RN NOTES: PER DAY SHIFT RN, JACQUELYN, ALL REPORT WAS GIVEN TO RIDGE FROM [facility]. TEHY ARE ALSO UPDATED ON THE LATEST PT VSS WELL THE DIRECTOR OF PERIOPERATIVE SERVICES TIME. ENDORSED THAT DAUGHTER WANTS TO BE CALLED WHEN DIRECTOR OF PERIOPERATIVE SERVICES IS HERE.
[2020-06-14] MEDS: IV NS 0.9% 250 ML IV PRN (21:18)
--- NOTE | 2020-06-14 23:00 | NUR ---
TELE/RN NOTES: PT LEFT UNIT AT 2300 VIA GURNEY WITH ACLS. IN STABLE CONDITION.
--- NOTE | 2020-06-14 23:00 | NUR ---
TELE/UI UX ENGINEER NOTES: [facility] ARRIVED 2240, ([phone]) FOR ALS PICKUP AT 1030PM. PT. IS STABLE VS TAKEN AND DOCUMENTED BP: 138/84 HR:80. TEMP:98.3 SATURATING AT 97 ON 2L OF OXYGEN VIA NC. TELE READING OF SR. ALL PICTURES OS SKIN ASSESSMENT DONE AND DOCUMENTED ON THE CHART. ALL BELONGINGS LIST SIGNED. ALL PT EDUCATION AND TEACHINGS DONE. REPORT GIVEN TO [facility]. PT. LEFT IN STABLE CONDITION. NO EPISODES OF SEIZURE. RESTRAINTS REMOVED. DAUGHTER CALLED AND WAITING OUTSIDE THE HOSPITAL TO SEE PT. PRIOR TO LOADING PT. IN THE AMBULANCE. PT DISCHARGED TO [facility] FOR FOR EEG AND POSSIBLE POULTRY HUSBANDMAN SHUNT. IV ON THE LFA #20G REMOVED. MIDLINE ON THE SOPHIE STAYED FOR FUTURE USE IN [facility].
== END 2020-06-14 23:00 | disposition short-term general hospital (02) | DRG 208 ==
LOC: ICU 05:31 → TELE1 06-08 15:09 → TELE2 06-13 20:22
PROVIDERS: ADMIT Internal Medicine; ATTEND Internal Medicine
PROC: 5A1945Z Respiratory Ventilation, 24-96 Consecutive Hours (ICD-10-PCS; principal; 2020-06-04)
PROC: 05HY33Z Insertion of Infusion Device into Upper Vein, Percutaneous Approach (ICD-10-PCS; 2020-06-06)
DX: J69.0 Pneumonitis due to inhalation of food and vomit (principal); J96.01 Acute respiratory failure with hypoxia; I21.A1 Myocardial infarction type 2; G92 Toxic encephalopathy; N17.0 Acute kidney failure with tubular necrosis; U07.1 COVID-19; G91.2 (Idiopathic) normal pressure hydrocephalus; E87.2 Acidosis; E87.0 Hyperosmolality and hypernatremia; G40.901 Epilepsy, unspecified, not intractable, with status epilepticus; G30.9 Alzheimer's disease, unspecified; F02.80 Dementia in other diseases classified elsewhere, unspecified severity, without behavioral disturbance, psychotic disturbance, mood disturbance, and anxiety; K21.9 Gastro-esophageal reflux disease without esophagitis; I70.0 Atherosclerosis of aorta; I10 Essential (primary) hypertension; R13.10 Dysphagia, unspecified; R26.9 Unspecified abnormalities of gait and mobility; F13.21 Sedative, hypnotic or anxiolytic dependence, in remission; F29 Unspecified psychosis not due to a substance or known physiological condition; E83.39 Other disorders of phosphorus metabolism; G47.00 Insomnia, unspecified; Z98.890 Other specified postprocedural states; M89.9 Disorder of bone, unspecified; F11.21 Opioid dependence, in remission; F01.50 Vascular dementia, unspecified severity, without behavioral disturbance, psychotic disturbance, mood disturbance, and anxiety; E87.6 Hypokalemia; E86.1 Hypovolemia; G93.89 Other specified disorders of brain
CPT/HCPCS: 31720; 36410; 36415; 36600; 62270; 70450-TC; 71045-TC; 80048-TC; 80053-TC; 80076-TC; 80185-TC; 82803-TC; 83605-TC; 83735-TC; 84100-TC; 84132-TC; 84155; 84165; 84484-TC; 85025-TC; 85378-TC; 85610-TC; 85730-TC; 86140-TC; 87070-TC; 87086-TC; 89051-TC; 92526; 92611-TC; 93307-TC; 94002-TC; 94003-TC; 94799-TC; 95819-TC; 99082-TC; A9563; G0378; J0692; J1165; J1650; J1953; J2060; J2405; J3475; J3480; J3490; J7030; J7050; J7060; Q2036; U0003